=== PATIENT | female | born 1930 | race Caucasian/White ===

== ENCOUNTER 2018-02-26 18:09 | Inpatient (IN) ==
[2018-02-26] MEDS ORDERED: COMPOUNDED MED TP PRN (20:21)
[2018-02-26] MEDS: *HR* HYDROcodone/Acet 5/325 mg TABLET PO PRN (22:29)
[2018-02-27] MEDS: *HR* Metformin 500 MG TABLET PO SCH (08:53)
[2018-02-27] MEDS: Magnesium Oxide 400 MG TABLET PO SCH (08:53)
[2018-02-27] MEDS: Cholecalciferol (D-3) 1,000 UNIT TABLET PO SCH (08:53)
[2018-02-27] MEDS: Cyanocobalamin (B-12) 1,000 MCG TABLET PO SCH (08:53)
[2018-02-27] MEDS: Aspirin Enteric Coated 81 MG Tablet PO SCH (08:54)
[2018-02-27] MEDS: *HR* HYDROcodone/Acet 5/325 mg TABLET PO PRN ×2 (09:06→21:24)
--- NOTE | 2018-02-27 10:53 | Internal Med History&Physical ---
Date of Encounter: 02/27/18 Time of Encounter: 10:10 Assessment and Plan (1) Left patella fracture Current visit: No Status: Acute PT and OT eval ordered. Continue nonoperative approach at this time. Order scheduled Tylenol and continue prn [place]. Qualifiers: Encounter type: initial encounter Fracture type: closed Fracture morphology: longitudinal Fracture alignment: nondisplaced Qualified Code(s): S82.025A - Nondisplaced longitudinal fracture of left patella, initial encounter for closed fracture (2) Peripheral neuropathy Current visit: Yes Status: Acute Will check hemoglobin A1c, TSH and B12 level. Qualifiers: Peripheral neuropathy type: polyneuropathy, unspecified Qualified Code(s): G62.9 - Polyneuropathy, unspecified (3) Anemia Current visit: Yes Status: Acute Hemoglobin normal at 11.5 on 02/24/2018. Check anemia testing in a.m. Qualifiers: Anemia type: unspecified type Qualified Code(s): D64.9 - Anemia, unspecified (4) Atrial fibrillation Current visit: No Status: Chronic Continue aspirin instead of OAC. Sotalol ineffective for maintaining NSR. Qualifiers: Atrial fibrillation type: paroxysmal Qualified Code(s): I48.0 - Paroxysmal atrial fibrillation (5) Diabetes Current visit: No Status: Chronic Check hemoglobin A1c in a.m. 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 Qualifiers: Coronary Disease-Associated Artery/Lesion type: [place] artery [place] vs. transplanted heart: [place] heart Associated angina: without angina Qualified Code(s): I25.10 - Atherosclerotic heart disease of [place] coronary artery without angina pectoris (7) Seizures Current visit: No Status: Chronic She reports no seizures for approximately 18 years. Recommend she discuss with her PCP discontinuation of Dilantin. (8) Hypophosphatemia Current visit: Yes Status: Acute Phosphorus level 2.1 yesterday. Will give Neutra-Phos and monitor labs. Internal Medicine - H&P: HPI Chief complaint: Left patella fracture Admitted From: Hospital to Hospital Transfer Plans for Post Hospital Care: Home History of present illness: Ms. Martinez is a 87 year old female who was hospitalized at [facility] February 24- after presenting with a fall and left patella fracture. Orthopedic surgeon was consulted and felt nonoperative approach was appropriate at this time. She was admitted to [facility] swing bed for ongoing care needs. [facility] skeletal history is significant otherwise for DJD and gout. Past Med Surg Social Fam HX - Past Medical History Medical history: arthritis, atrial fibrillation, CVA, diabetes, GERD, hypertension, myocardial infarction, seizures Additional medical history: PNEUMONIA. Last seizure approximat2002 Psychiatric history: anxiety, depression - Past Surgical History Surgical History: , coronary bypass (CABG), AICD, pacemaker Additional surgical history: hip surgery - Social History Smoking Status: Never smoker Smokeless Tobacco Status: No Alcohol use: none Drug use: none - Family History Mother Living Status: Father Living Status: Internal Medicine - H&P: Meds Alendronate Sodium 70 mg PO TU 02/24/18 [History] Aspirin [Lo-Dose Aspirin EC] 162 mg PO DAILY 02/24/18 [History] Calcium Carbonate [Calcium] 500 mg PO DAILY 02/24/18 [History] Cholecalciferol (D-3) [Vitamin D] 1,000 unit PO DAILY 02/24/18 [History] Cyanocobalamin (B-12) [Vitamin B12] 1,000 mcg IM FR 02/24/18 [History] Ferrous Sulfate [Iron] 325 mg PO DAILY 02/24/18 [History] Magnesium Oxide [Magnesium] 400 mg PO DAILY 02/24/18 [History] Mecobalamin [B-12] 1,000 mcg SL DAILY 02/24/18 [History] Metformin HCl 250 mg PO DAILY 02/24/18 [History] Omeprazole [PriLOSEC] 40 mg PO DAILY 02/24/18 [History] PARoxetine HCl [Paroxetine HCl] 40 mg PO DAILY 02/24/18 [History] Phenytoin ER [Dilantin ER] 100 mg PO TID 02/24/18 [History] Polyethylene Glycol 3350 [MiraLax bowel prep] 17 gm PO DAILY PRN 02/24/18 [History] Simvastatin [Zocor] 10 mg PO DAILY 02/24/18 [History] Sotalol HCl [Betapace] 120 mg PO QPM 02/24/18 [History] HYDROcodone/Acet 5/325 mg [[place]xton 5-325 mg] 1 tab PO Q6HR PRN 7 Days #15 tablet 02/26/18 [Rx] Patient Taking Own Medication 1 each TP QID PRN each 02/26/18 [Rx] Allergy/AdvReac Type Severity Reaction Status Date / Time Penicillins Allergy Hives Verified 01/13/16 17:40 gabapentin AdvReac Confusion Verified 12/09/17 14:25 sulfamethoxazole AdvReac See Verified 02/24/18 21:39 [From Bactrim] Comments terbinafine [From Lamisil] AdvReac Nausea Verified 12/09/17 14:25 trimethoprim [From Bactrim] AdvReac See Verified 02/24/18 21:39 Comments All Systems PM: A 10-system review of systems was performed and is negative for pertinent findings except as documented above in the HPI. Review of systems: Gen.: She states her weight has been stable for several months Cardiovascular: She denies hypertension or heart failure. She claims she had an AR approximately 1998 followed by three-vessel CABG. She follows with a cardiol ogist at [facility]. She has had a pacemaker placed. She has chronic atrial fibrillation and is on aspirin instead of oral anticoagulant. She denies DVT or pulmonary embolus. Respiratory: She is a lifelong nonsmoker and denies chronic lung disease GI: She has GERD. She denies disorders of her liver gallbladder or exocrine pancreas : She had a kidney stone remotely. 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 She denies large distribution strokes. She states she has peripheral neuropathy. Endocrine: She was diagnosed with DM 2 approximately 2011. She denies known thyroid disease or hyperlipidemia Hematology/oncology: She denies blood disorders or internal malignancies. She has anemia on current blood work Psychiatric: She has history of anxiety and depression and is on Paxil. She denies other mental health diagnosis. [place] skeletal: As per history of present illness - Constitutional Vitals: Temp Pulse Resp BP Pulse Ox 98.8 F 90 18 149/63 92 02/27/18 07:00 02/27/18 07:00 02/27/18 07:00 02/27/18 07:00 02/27/18 07:00 Exam: Gen.: She is a well-developed lean female sitting in a chair at bedside who appears in no acute distress HEENT: Head is atraumatic and normocephalic. Eyes: EOMI. There is no scleral icterus. Mouth: Mucosa is moist. Neck: Supple and nontender. There is no thyromegaly or adenopathy noted. Heart: Irregularly irregular without murmurs or gallops Lungs: No wheezes or crackles are heard. Abdomen: Soft and nontender. Exam is limited because she is in the seated position. Extremities: The left leg has a knee immobilizer in place which I did not remove. There is trace edema of the left lower leg. Dorsalis pedis and posterior tibial pulses are trace to 1+ palpable bilaterally. She has significant DJD changes of her hands. Neurologic: Mental status: She is talkative and a good historian. Cranial nerves: Smile is symmetric. Forehead wrinkles bilaterally. Tongue protrudes midline. EOMI. Motor: There is no pronator drift. Cerebellar: Finger to nose is intact bilaterally. Skin: Warm and dry
[2018-02-28 06:23] LABS: Basophils # 0.1 K/mcL (0.0-0.2); Basophils % 0.7 %; Eosinophils # 0.2 K/mcL (0.0-0.6); Hematocrit 37.6 % (35.3-44.9); Hemoglobin 12.4 g/dL (11.5-15.4); Immature Granulocytes % 0.3 % (0-4); Lymphocytes # 2.2 K/mcL (0.6-4.6); Lymphocytes % 29.1 %; Mean Corpuscular Hemoglobin 32.2 pg (28.0-33.3); Mean Corpuscular Volume 97.7 fL (83.0-100.0); Mean Platelet Volume 9.6 fL (9.4-12.4); Monocytes # 0.9 K/mcL (0.0-1.3); Monocytes % 12.3 %; Neutrophils # 4.1 K/mcL (1.6-8.9); Platelet Count 277 K/mcL (140-400); Red Blood Count 3.85 M/mcL (3.82-4.97); Red Cell Distribution Width 12.6 % (11.5-14.5); Segmented Neutrophils % 54.6 %
[2018-02-28 06:55] LABS: Thyroid Stimulating Hormone 3.484 mcIU/mL (0.340-5.600)
[2018-02-28 06:57] LABS: Phenytoin (Dilantin) 5.4 mcg/mL (10.0-20.0)
[2018-02-28 09:07] LABS: Folate 13.8 ng/mL (3.0-16.0)
[2018-02-28 09:42] LABS: Estimated Average Glucose 123 mg/dl; Hemoglobin A1C 5.9 %
[2018-02-28] MEDS: *HR* Metformin 500 MG TABLET PO SCH (09:45)
[2018-02-28] MEDS: Cholecalciferol (D-3) 1,000 UNIT TABLET PO SCH (09:47)
[2018-02-28] MEDS: Cyanocobalamin (B-12) 1,000 MCG TABLET PO SCH (09:47)
[2018-02-28] MEDS: Aspirin Enteric Coated 81 MG Tablet PO SCH (09:47)
[2018-02-28] MEDS: Magnesium Oxide 400 MG TABLET PO SCH (09:47)
[2018-02-28] MEDS: *HR* HYDROcodone/Acet 5/325 mg TABLET PO PRN (09:50)
--- NOTE | 2018-02-28 12:22 | Internal Med Progress Note ---
Date of Encounter: 02/28/18 Time of Encounter: 12:05 - Assessment and plan (1) Left patella fracture Current Visit: No Status: Acute Assessment and plan: February 28. Continue therapy and analgesics as ordered. Qualifiers: Encounter type: initial encounter Fracture type: closed Fracture morphology: longitudinal Fracture alignment: nondisplaced Qualified Code(s): S82.025A - Nondisplaced longitudinal fracture of left patella, initial encounter for closed fracture (2) Peripheral neuropathy Current Visit: Yes Status: Acute Assessment and plan: February 28. B12 and TSH levels normal. Dilantin level low at 5.4. Will initiate taper of dose and see if neuropathy improves. Qualifiers: Peripheral neuropathy type: polyneuropathy, unspecified Qualified Code(s): G62.9 - Polyneuropathy, unspecified (3) Anemia Current Visit: Yes Status: Acute Assessment and plan: February 28. Hemoglobin normal at 12.4 today. Anemia testing showed iron 68, transferrin saturation 34, transferrin 144, ferritin 268, B12 996, and folate 13.8. Continue to monitor CBC. Qualifiers: Anemia type: unspecified type Qualified Code(s): D64.9 - Anemia, unspecified (4) Atrial fibrillation Current Visit: No Status: Chronic Assessment and plan: February 28. Continue aspirin. Sotalol ineffective for maintaining NSR. Qualifiers: Atrial fibrillation type: paroxysmal Qualified Code(s): I48.0 - Paroxysmal atrial fibrillation (5) Diabetes Current Visit: No Status: Chronic Assessment and plan: February 28. Hemoglobin A1c 5.9%. Will discontinue Glucophage and Accu-Cheks. 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 Continue aspirin. Qualifiers: Coronary Disease-Associated Artery/Lesion type: [place] artery [place] vs. transplanted heart: [place] heart Associated angina: without angina Qualified Code(s): I25.10 - Atherosclerotic heart disease of [place] coronary artery without angina pectoris (7) Seizures Current Visit: No Status: Chronic Assessment and plan: February 28. Initiate taper of Dilantin as per above. (8) Hypophosphatemia Current Visit: Yes Status: Acute Assessment and plan: February 28. Continue Neutra-Phos. Recheck phosphorus and other labs in a few days. - Subjective Interval history: February 28. She has no new complaints and feels well - Constitutional Vitals: Temp Pulse Resp BP Pulse Ox 97.8 F 92 16 113/61 95 02/28/18 11:01 02/28/18 11:01 02/28/18 11:01 02/28/18 11:01 02/28/18 11:01 Exam: She is resting comfortably in bed eating lunch and appears in no acute distress. Her affect is bright and cheerful. I reviewed her medications and lab results. Internal Medicine: Result - Labs CBC & Chem 7: 02/28/18 06:06 Labs: Short CBC 02/28/18 Range/Units 06:06 WBC 7.6 (4.3-11.1) K/mcL Hgb 12.4 D (11.5-15.4) g/dL Hct 37.6 (35.3-44.9) % Plt Count 277 (140-400) K/mcL Neutrophils # 4.1 (1.6-8.9) K/mcL Consult Discharge Plan - Plan Referrals: NONE,PCP [Primary Care Provider] - 1 week
[2018-02-28] MEDS: traMADol 50 MG TABLET PO PRN (16:12)
[2018-02-28] MEDS: Cyanocobalamin (B-12) 1,000 MCG/ML VIAL IM SCH (20:11)
[2018-03-01] MEDS: traMADol 50 MG TABLET PO PRN ×4 (00:42→22:10)
[2018-03-01] MEDS: Magnesium Oxide 400 MG TABLET PO SCH (08:36)
[2018-03-01] MEDS: Aspirin Enteric Coated 81 MG Tablet PO SCH (08:36)
[2018-03-01] MEDS: Cholecalciferol (D-3) 1,000 UNIT TABLET PO SCH (08:37)
[2018-03-01] MEDS: Cyanocobalamin (B-12) 1,000 MCG TABLET PO SCH (08:37)
[2018-03-02] MEDS: traMADol 50 MG TABLET PO PRN ×2 (05:48→12:59)
[2018-03-02] MEDS: Aspirin Enteric Coated 81 MG Tablet PO SCH (08:24)
[2018-03-02] MEDS: Cyanocobalamin (B-12) 1,000 MCG TABLET PO SCH (08:25)
[2018-03-02] MEDS: Magnesium Oxide 400 MG TABLET PO SCH (08:25)
[2018-03-02] MEDS: Cholecalciferol (D-3) 1,000 UNIT TABLET PO SCH (08:25)
--- NOTE | 2018-03-02 13:20 | Internal Med Progress Note ---
Date of Encounter: 03/02/18 Time of Encounter: 13:10 - Assessment and plan (1) Left patella fracture Current Visit: No Status: Acute Assessment and plan: February 28. Continue therapy and analgesics as ordered. Qualifiers: Encounter type: initial encounter Fracture type: closed Fracture morphology: longitudinal Fracture alignment: nondisplaced Qualified Code(s): S82.025A - Nondisplaced longitudinal fracture of left patella, initial encounter for closed fracture (2) Peripheral neuropathy Current Visit: Yes Status: Acute Assessment and plan: February 28. B12 and TSH levels normal. Dilantin level low at 5.4. Will initiate taper of dose and see if neuropathy improves. March 02. Continue Dilantin taper. Qualifiers: Peripheral neuropathy type: polyneuropathy, unspecified Qualified Code(s): G62.9 - Polyneuropathy, unspecified (3) Anemia Current Visit: Yes Status: Acute Assessment and plan: February 28. Hemoglobin normal at 12.4 today. Anemia testing showed iron 68, transferrin saturation 34, transferrin 144, ferritin 268, B12 996, and folate 13.8. Continue to monitor CBC. Qualifiers: Anemia type: unspecified type Qualified Code(s): D64.9 - Anemia, unspecified (4) Atrial fibrillation Current Visit: No Status: Chronic Assessment and plan: February 28. Continue aspirin. Sotalol ineffective for maintaining NSR. Qualifiers: Atrial fibrillation type: paroxysmal Qualified Code(s): I48.0 - Paroxysmal atrial fibrillation (5) Diabetes Current Visit: No Status: Chronic Assessment and plan: February 28. Hemoglobin A1c 5.9%. Will discontinue Glucophage and Accu-Cheks. March 02. She wishes to be on regular diet insisted of diabetic diet. 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 Continue aspirin. Qualifiers: Coronary Disease-Associated Artery/Lesion type: [place] artery [place] vs. transplanted heart: [place] heart Associated angina: without angina Qualified Code(s): I25.10 - Atherosclerotic heart disease of [place] coronary artery without angina pectoris (7) Seizures Current Visit: No Status: Chronic Assessment and plan: February 28. Initiate taper of Dilantin as per above. (8) Hypophosphatemia Current Visit: Yes Status: Acute Assessment and plan: February 28. Continue Neutra-Phos. Recheck phosphorus and other labs in a few days. - Subjective Interval history: February 28. She has no new complaints and feels well March 02. She has no new complaints. She states her left leg pain is gradually decreasing. - Constitutional Vitals: Temp Pulse Resp BP Pulse Ox 98.2 F 84 17 135/83 92 03/02/18 07:18 03/02/18 07:18 03/02/18 07:18 03/02/18 07:18 03/02/18 07:18 Exam: She is resting comfortably in bed and appears in no acute distress. Her affect is bright and cheerful. I reviewed her medications and lab results. Internal Medicine: Result - Labs CBC & Chem 7: 02/28/18 06:06 Consult Discharge Plan - Plan Referrals: NONE,PCP [Primary Care Provider] - 1 week
[2018-03-03] MEDS: Cyanocobalamin (B-12) 1,000 MCG TABLET PO SCH (08:54)
[2018-03-03] MEDS: Cholecalciferol (D-3) 1,000 UNIT TABLET PO SCH (08:55)
[2018-03-03] MEDS: Magnesium Oxide 400 MG TABLET PO SCH (08:55)
[2018-03-03] MEDS: Aspirin Enteric Coated 81 MG Tablet PO SCH (08:55)
[2018-03-03 10:31] LABS: Basophils # 0.1 K/mcL (0.0-0.2); Basophils % 0.7 %; Eosinophils # 0.2 K/mcL (0.0-0.6); Eosinophils % 2.5 %; Hematocrit 39.3 % (35.3-44.9); Hemoglobin 12.8 g/dL (11.5-15.4); Immature Granulocytes % 0.5 % (0-4); Lymphocytes # 1.8 K/mcL (0.6-4.6); Lymphocytes % 18.2 %; Mean Corpuscular HGB Conc 32.6 g/dL (31.6-35.5); Mean Corpuscular Hemoglobin 32.2 pg (28.0-33.3); Mean Corpuscular Volume 98.7 fL (83.0-100.0); Mean Platelet Volume 9.2 fL (9.4-12.4); Monocytes # 1.2 K/mcL (0.0-1.3); Monocytes % 11.8 %; Neutrophils # 6.5 K/mcL (1.6-8.9); Platelet Count 346 K/mcL (140-400); Red Blood Count 3.98 M/mcL (3.82-4.97); Red Cell Distribution Width 12.3 % (11.5-14.5); Segmented Neutrophils % 66.3 %
[2018-03-03] MEDS: *HR* HYDROcodone/Acet 5/325 mg TABLET PO PRN (11:27)
[2018-03-03] MEDS: traMADol 50 MG TABLET PO PRN (22:40)
[2018-03-04] MEDS: traMADol 50 MG TABLET PO PRN ×3 (05:46→20:28)
[2018-03-04] MEDS: *HR* HYDROcodone/Acet 5/325 mg TABLET PO PRN ×2 (06:52→22:42)
[2018-03-04] MEDS: Aspirin Enteric Coated 81 MG Tablet PO SCH (09:03)
[2018-03-04] MEDS: Cyanocobalamin (B-12) 1,000 MCG TABLET PO SCH (09:03)
[2018-03-04] MEDS: Magnesium Oxide 400 MG TABLET PO SCH (09:03)
[2018-03-04] MEDS: Cholecalciferol (D-3) 1,000 UNIT TABLET PO SCH (09:03)
--- NOTE | 2018-03-04 12:37 | Internal Med Progress Note ---
Date of Encounter: 03/04/18 Time of Encounter: 12:25 - Assessment and plan (1) Left patella fracture Current Visit: No Status: Acute Assessment and plan: February 28. Continue therapy and analgesics as ordered. Qualifiers: Encounter type: initial encounter Fracture type: closed Fracture morphology: longitudinal Fracture alignment: nondisplaced Qualified Code(s): S82.025A - Nondisplaced longitudinal fracture of left patella, initial encounter for closed fracture (2) Peripheral neuropathy Current Visit: Yes Status: Acute Assessment and plan: February 28. B12 and TSH levels normal. Dilantin level low at 5.4. Will initiate taper of dose and see if neuropathy improves. March 02. Continue Dilantin taper. Qualifiers: Peripheral neuropathy type: polyneuropathy, unspecified Qualified Code(s): G62.9 - Polyneuropathy, unspecified (3) Anemia Current Visit: Yes Status: Acute Assessment and plan: February 28. Hemoglobin normal at 12.4 today. Anemia testing showed iron 68, transferrin saturation 34, transferrin 144, ferritin 268, B12 996, and folate 13.8. Continue to monitor CBC. Qualifiers: Anemia type: unspecified type Qualified Code(s): D64.9 - Anemia, unspecified (4) Atrial fibrillation Current Visit: No Status: Chronic Assessment and plan: February 28. Continue aspirin. Sotalol ineffective for maintaining NSR. Qualifiers: Atrial fibrillation type: paroxysmal Qualified Code(s): I48.0 - Paroxysmal atrial fibrillation (5) Diabetes Current Visit: No Status: Chronic Assessment and plan: February 28. Hemoglobin A1c 5.9%. Will discontinue Glucophage and Accu-Cheks. March 02. She wishes to be on regular diet insisted of diabetic diet. Qualifiers: Diabetes mellitus type: type 2 Diabetes mellitus detention insulin use: unspecified terminologist insulin use status Diabetes mellitus complication status: with unspecified complications Qualified Code(s): E11.8 - Type 2 diabetes mellitus with unspecified complications (6) CAD (coronary artery disease) Current Visit: No Status: Chronic Assessment and plan: February 28. Continue aspirin. Qualifiers: Coronary Disease-Associated Artery/Lesion type: [place] artery [place] vs. transplanted heart: [place] heart Associated angina: without angina Qualified Code(s): I25.10 - Atherosclerotic heart disease of [place] coronary artery without angina pectoris (7) Seizures Current Visit: No Status: Chronic Assessment and plan: February 28. Initiate taper of Dilantin as per above. (8) Hypophosphatemia Current Visit: Yes Status: Acute Assessment and plan: February 28. Continue Neutra-Phos. Recheck phosphorus and other labs in a few days. March 04. Phosphorus level normal at 3.8 on March 03. Discontinue Neutra-Phos. - Subjective Interval history: February 28. She has no new complaints and feels well March 02. She has no new complaints. She states her left leg pain is gradually decreasing. March 04. She has no new complaints. - Constitutional Vitals: Temp Pulse Resp BP Pulse Ox 97.8 F 96 15 107/63 95 03/04/18 07:04 03/04/18 07:04 03/04/18 07:04 03/04/18 07:04 03/04/18 07:04 Exam: She is resting comfortably in bed and appears in no acute distress. Her affect is bright and cheerful. I reviewed her medications and lab results. Internal Medicine: Result - Labs CBC & Chem 7: 03/03/18 10:25 Consult Discharge Plan - Plan Referrals: NONE,PCP [Primary Care Provider] - 1 week
[2018-03-04] MEDS ORDERED: Alendronate Sodium [Alendronate Sodium] 70 MG PO SCH (19:54)
[2018-03-05] MEDS: Cyanocobalamin (B-12) 1,000 MCG TABLET PO SCH (08:05)
[2018-03-05] MEDS: Magnesium Oxide 400 MG TABLET PO SCH (08:05)
[2018-03-05] MEDS: Cholecalciferol (D-3) 1,000 UNIT TABLET PO SCH (08:05)
[2018-03-05] MEDS: Aspirin Enteric Coated 81 MG Tablet PO SCH (08:06)
[2018-03-05] MEDS: *HR* HYDROcodone/Acet 5/325 mg TABLET PO PRN (21:19)
[2018-03-06] MEDS: *HR* HYDROcodone/Acet 5/325 mg TABLET PO PRN (05:36)
[2018-03-06] MEDS: Cyanocobalamin (B-12) 1,000 MCG TABLET PO SCH (08:53)
[2018-03-06] MEDS: Aspirin Enteric Coated 81 MG Tablet PO SCH (08:53)
[2018-03-06] MEDS: Cholecalciferol (D-3) 1,000 UNIT TABLET PO SCH (08:53)
[2018-03-06] MEDS: Magnesium Oxide 400 MG TABLET PO SCH (08:53)
--- NOTE | 2018-03-06 12:41 | Internal Med Progress Note ---
Date of Encounter: 03/06/18 Time of Encounter: 12:30 - Assessment and plan (1) Left patella fracture Current Visit: No Status: Acute Assessment and plan: February 28. Continue therapy and analgesics as ordered. Qualifiers: Encounter type: initial encounter Fracture type: closed Fracture morphology: longitudinal Fracture alignment: nondisplaced Qualified Code(s): S82.025A - Nondisplaced longitudinal fracture of left patella, initial encounter for closed fracture (2) Peripheral neuropathy Current Visit: Yes Status: Acute Assessment and plan: February 28. B12 and TSH levels normal. Dilantin level low at 5.4. Will initiate taper of dose and see if neuropathy improves. March 02. Continue Dilantin taper. March 06. Decrease Dilantin to 100 mg daily. Qualifiers: Peripheral neuropathy type: polyneuropathy, unspecified Qualified Code(s): G62.9 - Polyneuropathy, unspecified (3) Anemia Current Visit: Yes Status: Acute Assessment and plan: February 28. Hemoglobin normal at 12.4 today. Anemia testing showed iron 68, transferrin saturation 34, transferrin 144, ferritin 268, B12 996, and folate 13.8. Continue to monitor CBC. March 06. Hemoglobin stable at 12.8 on March 03. Qualifiers: Anemia type: unspecified type Qualified Code(s): D64.9 - Anemia, unspecifie d (4) Atrial fibrillation Current Visit: No Status: Chronic Assessment and plan: February 28. Continue aspirin. Sotalol ineffective for maintaining NSR. Qualifiers: Atrial fibrillation type: paroxysmal Qualified Code(s): I48.0 - Paroxysmal atrial fibrillation (5) Diabetes Current Visit: No Status: Chronic Assessment and plan: February 28. Hemoglobin A1c 5.9%. Will discontinue Glucophage and Accu-Cheks. March 02. She wishes to be on regular diet insisted of diabetic diet. 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 Continue aspirin. Qualifiers: Coronary Disease-Associated Artery/Lesion type: [place] artery [place] vs. transplanted heart: [place] heart Associated angina: without angina Qualified Code(s): I25.10 - Atherosclerotic heart disease of [place] coronary artery without angina pectoris (7) Seizures Current Visit: No Status: Chronic Assessment and plan: February 28. Initiate taper of Dilantin as per above. March 06. Continue Dilantin taper. (8) Hypophosphatemia Current Visit: Yes Status: Acute Assessment and plan: February 28. Continue Neutra-Phos. Recheck phosphorus and other labs in a few days. March 04. Phosphorus level normal at 3.8 on March 03. Discontinue Neutra-Phos. - Subjective Interval history: February 28. She has no new complaints and feels well March 02. She has no new complaints. She states her left leg pain is gradually decreasing. March 04. She has no new complaints. March 06. She has no new complaints. - Constitutional Vitals: Temp Pulse Resp BP Pulse Ox 98.4 F 86 18 123/78 95 03/06/18 10:49 03/06/18 10:49 03/06/18 10:49 03/06/18 10:49 03/06/18 10:49 Exam: She is resting comfortably in bed and appears in no acute distress. Her affect is bright and cheerful. I reviewed her medications and lab results. Internal Medicine: Result - Labs CBC & Chem 7: 03/03/18 10:25 Consult Discharge Plan - Plan Referrals: NONE,PCP [Non-Partnered Physician] - 1 week
[2018-03-07] MEDS: Aspirin Enteric Coated 81 MG Tablet PO SCH (07:52)
[2018-03-07] MEDS: Magnesium Oxide 400 MG TABLET PO SCH (07:52)
[2018-03-07] MEDS: Cholecalciferol (D-3) 1,000 UNIT TABLET PO SCH (07:52)
[2018-03-07] MEDS: Cyanocobalamin (B-12) 1,000 MCG TABLET PO SCH (07:53)
[2018-03-07] MEDS: *HR* HYDROcodone/Acet 5/325 mg TABLET PO PRN (13:21)
[2018-03-07] MEDS: Cyanocobalamin (B-12) 1,000 MCG/ML VIAL IM SCH (20:24)
[2018-03-07] MEDS: traMADol 50 MG TABLET PO PRN (23:35)
[2018-03-08] MEDS: *HR* HYDROcodone/Acet 5/325 mg TABLET PO PRN (05:42)
[2018-03-08] MEDS: Aspirin Enteric Coated 81 MG Tablet PO SCH (08:05)
[2018-03-08] MEDS: Magnesium Oxide 400 MG TABLET PO SCH (08:06)
[2018-03-08] MEDS: Cyanocobalamin (B-12) 1,000 MCG TABLET PO SCH (08:06)
[2018-03-08] MEDS: Cholecalciferol (D-3) 1,000 UNIT TABLET PO SCH (08:06)
[2018-03-09 08:42] VITALS: BP 142/78
[2018-03-09] MEDS: Aspirin Enteric Coated 81 MG Tablet PO SCH (09:14)
[2018-03-09] MEDS: Magnesium Oxide 400 MG TABLET PO SCH (09:16)
[2018-03-09] MEDS: Cyanocobalamin (B-12) 1,000 MCG TABLET PO SCH (09:17)
[2018-03-09] MEDS: Cholecalciferol (D-3) 1,000 UNIT TABLET PO SCH (09:17)
--- NOTE | 2018-03-09 10:46 | Discharge Summary ---
Date of Encounter: 03/09/18 Time of Encounter: 10:35 - Discharge Diagnosis (1) Left patella fracture Priority: Primary Status: Acute Qualifiers: Encounter type: initial encounter Fracture type: closed Fracture morphology: longitudinal Fracture alignment: nondisplaced Qualified Code(s): S82.025A - Nondisplaced longitudinal fracture of left patella, initial encounter for closed fracture (2) Peripheral neuropathy Priority: Secondary Status: Acute Qualifiers: Peripheral neuropathy type: polyneuropathy, unspecified Qualified Code(s): G62.9 - Polyneuropathy, unspecified (3) Anemia Priority: Secondary Status: Acute Qualifiers: Anemia type: unspecified type Qualified Code(s): D64.9 - Anemia, unspecified (4) Atrial fibrillation Priority: Secondary Status: Chronic Qualifiers: Atrial fibrillation type: paroxysmal Qualified Code(s): I48.0 - Paroxysmal atrial fibrillation (5) Diabetes Priority: Secondary Status: Chronic Qualifiers: Diabetes mellitus type: type 2 Diabetes mellitus buttermaker continuous churn insulin use: unspecified mcc insulin use status Diabetes mellitus complication status: with unspecified complications Qualified Code(s): E11.8 - Type 2 diabetes mellitus with unspecified complications (6) CAD (coronary artery disease) Priority: Secondary Status: Chronic Qualifiers: Coronary Disease-Associated Artery/Lesion type: [place] artery [place] vs. transplanted heart: [place] heart Associated angina: without angina Qualified Code(s): I25.10 - Atherosclerotic heart disease of [place] coronary artery without angina pectoris (7) Seizures Priority: Secondary Status: Chronic (8) Hypophosphatemia Priority: Secondary Status: Resolved Hospital course: Ms. DAHL is a 87 year old female who was hospitalized at [facility] February 24- after presenting with a fall and left patella fracture. Orthopedic surgeon was consulted and felt nonoperative approach was appropriate at this time. She was admitted to [facility] swing bed for ongoing care needs. Initial orders were written by the discharging physicians at [facility]. I saw her on February 27 and performed a swing bed history and physical. She had physical therapy and occupational therapy evaluations with ongoing intervention. She made satisfactory improvement. Pain was adequately controlled. There were no new problems and on March 09 arrangements were complete for her to be discharged home. She will follow with the orthopedist as directed. Dilantin was tapered to see if peripheral neuropathy would improve. She reported she had not had a seizure in 18 years. Her PCP can monitor. Anemia testing showed iron 68, transferrin saturation 34%, transferrin 144, ferritin 268, B12 996, and folate 13.8. 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 Hemoglobin A1c was satisfactory at 5.9%. Metformin was discontinued and blood sugars remained well controlled. She will follow with her PCP within 1 week. Home health services will be ordered. - Time Spent with Patient Total time spent providing and/or coordinating discharge services: - Discharge Medications Home Medications: Alendronate Sodium 70 mg PO TU 02/24/18 [History] Aspirin [Lo-Dose Aspirin EC] 162 mg PO DAILY 02/24/18 [History] Calcium Carbonate [Calcium] 500 mg PO DAILY 02/24/18 [History] Cholecalciferol (D-3) [Vitamin D] 1,000 unit PO DAILY 02/24/18 [History] Cyanocobalamin (B-12) [Vitamin B12] 1,000 mcg IM FR 02/24/18 [History] Ferrous Sulfate [Iron] 325 mg PO DAILY 02/24/18 [History] Magnesium Oxide [Magnesium] 400 mg PO DAILY 02/24/18 [History] Mecobalamin [B-12] 1,000 mcg SL DAILY 02/24/18 [History] Omeprazole [PriLOSEC] 40 mg PO DAILY 02/24/18 [History] PARoxetine HCl [Paroxetine HCl] 40 mg PO DAILY 02/24/18 [History] Polyethylene Glycol 3350 [MiraLax bowel prep] 17 gm PO DAILY PRN 02/24/18 [History] Simvastatin [Zocor] 10 mg PO DAILY 02/24/18 [History] Sotalol HCl [Betapace] 120 mg PO QPM 02/24/18 [History] Patient Taking Own Medication 1 each TP QID PRN each 02/26/18 [Rx] Allergies/Adverse Reactions: Allergy/AdvReac Type Severity Reaction Status Date / Time Penicillins Allergy Hives Verified 01/13/16 17:40 gabapentin AdvReac Confusion Verified 12/09/17 14:25 sulfamethoxazole AdvReac See Verified 02/24/18 21:39 [From Bactrim] Comments terbinafine [From Lamisil] AdvReac Nausea Verified 12/09/17 14:25 trimethoprim [From Bactrim] AdvReac See Verified 02/24/18 21:39 Comments Date of admission: 02/26/18 18:28 Primary care physician: Teja Schrader MD Consults: 02/26/18 19:28 Consult to Occupational Therapy [CONS] Routine Comment: To evaluate, develop, and implement POC Reason for Consult: To evaluate, develop, and implement POC Does patient have active BEDREST order?: No Is patient medically & hemodynamically stable?: Yes Patient assessed for mobility or mobilized this visit?: Yes Consult to Physical Therapy [CONS] Routine Comment: To evaluate, develop, and implement POC Reason for Consult: To evaluate, develop, and implement POC Does patient have active BEDREST order?: No Is patient medically & hemodynamically stable?: Yes Patient assessed for mobility or mobilized this visit?: Yes Consult to Pst Specialist [CONS] Routine Reason for SW Consult: discharge planning - Constitutional Vitals: Temp Pulse Resp BP Pulse Ox 98.1 F 82 18 142/78 94 03/09/18 08:00 03/09/18 08:00 03/09/18 08:00 03/09/18 08:00 03/09/18 08:00 - Patient Status Disposition: Home Health Service Functional capacity at discharge: uses cane/walker - Discharge Instructions Follow Up With: NONE,PCP [Non-Partnered Physician] - 1 week - Diet and Activity Activity: as per physical therapy Diet: regular diet
--- NOTE | 2018-03-09 10:58 | Physician Discharge Referral ---
Home Health/Hosp Referral Info Transfer to: Home Health Attending Provider: Tyron Provider in Charge Post Discharge: PCP (Teja Schrader M.D.) - Diagnosis (1) Left patella fracture Priority: Primary Status: Acute (2) Peripheral neuropathy Priority: Secondary Status: Acute (3) Anemia Priority: Secondary Status: Acute (4) Atrial fibrillation Priority: Secondary Status: Chronic (5) Diabetes Priority: Secondary Status: Chronic (6) CAD (coronary artery disease) Priority: Secondary Status: Chronic (7) Seizures Priority: Secondary Status: Chronic (8) Hypophosphatemia Priority: Secondary Status: Resolved - Respiratory Orders Smoking Cessation: Smoking cessation has been advised. For more information, call the [place] Tobacco Quit Line at 5-153-VGKU-NOW. - Diet/Nutrition Diet/Nutrition Orders: Regular - Activity Activity Orders: Walker - Services Needed Following services are medically necessary services: Nursing, Home Health Aide, Physical Therapy, Occupational Therapy - Transfer Medications Home Medications: Alendronate Sodium 70 mg PO TU 02/24/18 [History] Aspirin [Lo-Dose Aspirin EC] 162 mg PO DAILY 02/24/18 [History] Calcium Carbonate [Calcium] 500 mg PO DAILY 02/24/18 [History] Cholecalciferol (D-3) [Vitamin D] 1,000 unit PO DAILY 02/24/18 [History] Cyanocobalamin (B-12) [Vitamin B12] 1,000 mcg IM FR 02/24/18 [History] Ferrous Sulfate [Iron] 325 mg PO DAILY 02/24/18 [History] Magnesium Oxide [Magnesium] 400 mg PO DAILY 02/24/18 [History] Mecobalamin [B-12] 1,000 mcg SL DAILY 02/24/18 [History] Omeprazole [PriLOSEC] 40 mg PO DAILY 02/24/18 [History] PARoxetine HCl [Paroxetine HCl] 40 mg PO DAILY 02/24/18 [History] Polyethylene Glycol 3350 [MiraLax bowel prep] 17 gm PO DAILY PRN 02/24/18 [History] Simvastatin [Zocor] 10 mg PO DAILY 02/24/18 [History] Sotalol HCl [Betapace] 120 mg PO QPM 02/24/18 [History] Patient Taking Own Medication 1 each TP QID PRN each 02/26/18 [Rx] Allergies/Adverse Reactions: Allergy/AdvReac Type Severity Reaction Status Date / Time Penicillins Allergy Hives Verified 01/13/16 17:40 gabapentin AdvReac Confusion Verified 12/09/17 14:25 sulfamethoxazole AdvReac See Verified 02/24/18 21:39 [From Bactrim] Comments terbinafine [From Lamisil] AdvReac Nausea Verified 12/09/17 14:25 trimethoprim [From Bactrim] AdvReac See Verified 02/24/18 21:39 Comments Certification: Further, I certify that my clinical findings support that this patient is homebound (i.e. absences from home require considerable and taxing effort and are for medical reasons or restorationist services or infrequently or short duration when for other reasons) because: Homebound Reason: Leaving home requires considerable and taxing effort due to condition (Impaired walking ability secondary to patella fracture) Attestation: My signature below is to certify that this patient is under my care and that I, or nurse practitioner, or a physician's medical clerical assistant working with me, has a [id number] encounter with this patient.
[2018-03-09] MEDS: traMADol 50 MG TABLET PO PRN (18:37)
== END 2018-03-09 19:08 | disposition home health service (06) | DRG 561 ==
LOC: INPPIK 18:28
PROVIDERS: ADMIT Internal Medicine; ATTEND Internal Medicine

== ENCOUNTER 2018-12-18 16:02 | Inpatient (IN) ==
--- NOTE | 2018-12-18 16:10 | Emergency Department Note ---
Disposition Clinical Impression: Cavitary pneumonia Pneumonia Qualifiers: Pneumonia type: due to unspecified organism Laterality: right Lung location: upper lobe of lung Qualified Code(s): J18.1 - Lobar pneumonia, unspecified organism Disposition: Admitted As Inpatient Condition: Fair Time of Disposition: 16:55 SOB HPI - General Chief Complaint: ED General Medical Stated Complaint: shortness of breath, fatigue Time Seen by Provider: 12/18/18 16:04 Source: patient, family Mode of arrival: private vehicle Limitations: no limitations Nursing Notes Reviewed: Yes Vital Signs Reviewed: Yes - History of Present Illness Reports having some sinus congestion and drainage for about a month. With this she has had some shortness of breath but this is increased over the last 4 days. She states her cough is because of the sinus drainage is nonproductive. Her family doctor to urgent care in [facility] where they said her heart rate was running 50-100 and they were given oxygen saturations of 80-82% on room air. There advised her that she should go to the emergency department and she is presented here by private auto. She is not on oxygen. She is in the [place] urgent care about an hour and half ago. Family states they checked a urinalysis and this was unremarkable. She relates she gets a little bit of lower extremity edema in the mornings but he gets better during the days. She denies any chest pain or palpitation. She states her cough is better with some cough drops. She denies any diaphoresis or nausea. She states she feels "just weak". The only medication she is been on some Robitussin. She has not seen a family doctor and has not been on any type antibiotics or respiratory treatment. She arrives here in a sinus rhythm with oxygen saturations in the mid to high 90s. Pt Subjective Complaint: shortness of breath Onset (ago): month(s) (1) Context: recent illness Severity: mild, moderate Consistency/Duration: intermittent, gradually worsening Improves with: rest Worsens with: movement, coughing Known history of: diabetes, other (Atrial fibrillation) Associated symptoms: Reports: cough. Denies: chest pain, pain with inspiration, fever, wheezing, sputum production, orthopnea, lower extremity pain, polyuria, polydipsia, parasthesias, palpitations, hemoptysis, diaphoresis, nausea/vomiting, syncope, abdominal pain, rash, sense of impending doom Treatment prior to arrival: none Cough present: Yes Cough Description: Voluntary, Dry Cough Frequency: Intermittent Sputum production: No Sputum Amount: None - Related Data Home oxygen amount: none Home Medications Medication Instructions Recorded Confirmed Alendronate Sodium 70 mg PO TU 02/24/18 02/26/18 Aspirin [Lo-Dose Aspirin EC] 162 mg PO DAILY 02/24/18 02/26/18 Calcium Carbonate [Calcium] 500 mg PO DAILY 02/24/18 02/26/18 Cholecalciferol (D-3) [Vitamin D] 1,000 unit PO DAILY 02/24/18 02/26/18 Cyanocobalamin (B-12) [Vitamin B12] 1,000 mcg IM FR 02/24/18 02/26/18 Ferrous Sulfate [Iron] 325 mg PO DAILY 02/24/18 02/26/18 Magnesium Oxide [Magnesium] 400 mg PO DAILY 02/24/18 02/26/18 Mecobalamin [B-12] 1,000 mcg SL DAILY 02/24/18 02/26/18 Omeprazole [PriLOSEC] 40 mg PO DAILY 02/24/18 02/26/18 PARoxetine HCl [Paroxetine HCl] 40 mg PO DAILY 02/24/18 02/26/18 Polyethylene Glycol 3350 [MiraLax 17 gm PO DAILY PRN 02/24/18 02/26/18 bowel prep] Simvastatin [Zocor] 10 mg PO DAILY 02/24/18 02/26/18 Sotalol HCl [Betapace] 120 mg PO QPM 02/24/18 02/26/18 Previous Rx's Medication Instructions Recorded Patient Taking Own Medication 1 each TP QID PRN each 02/26/18 Allergies Allergy/AdvReac Type Severity Reaction Status Date / Time Penicillins Allergy Hives Verified 01/13/16 17:40 gabapentin AdvReac Confusion Verified 12/09/17 14:25 sulfamethoxazole AdvReac See Verified 02/24/18 21:39 [From Bactrim] Comments terbinafine [From Lamisil] AdvReac Nausea Verified 12/09/17 14:25 trimethoprim [From Bactrim] AdvReac See Verified 02/24/18 21:39 Comments All systems ED: reviewed and negative except as stated. Past Medical History - Past Medical History Attestation: Yes The following information was validated with the patient. Source: patient, old records reviewed, obtained from family, nursing notes reviewed Medical history: Reports: arthritis, atrial fibrillation, CVA, diabetes, GERD, hypertension, myocardial infarction, seizures Surgical history: Reports: , coronary bypass (CABG), AICD, pacemaker Psychiatric history: Reports: anxiety, depression - Social History Smoking Status: Never smoker Smokeless Tobacco Status: No Alcohol use: Reports: none Drug use: Reports: none Physical Exam - General Limitations: no limitations General appearance: alert, in no apparent distress - Head Head exam: atraumatic, normocephalic, normal inspection - Eye Eye exam: Present: normal appearance, PERRL, EOMI - ENT ENT exam: normal exam, normal oropharynx, mucous membranes moist - Neck Neck exam: Present: normal inspection, full ROM, trachea midline - Chest Chest inspection: Present: normal inspection, symmetric chest wall rise. Absent: tenderness - Respiratory Respiratory exam: Present: normal lung sounds bilaterally, other (Occasional dry cough). Absent: respiratory distress, wheezes, prolonged expiratory phase - Cardiovascular Cardiovascular exam: Present: regular rate, normal rhythm, normal heart sounds, other (PVCs on monitor). Absent: tachycardia - Abdominal Exam Abdominal exam: Present: soft, Non-Tender, normal bowel sounds. Absent: tenderness, distention, guarding, rebound, rigidity - Extremities Exam Extremities exam: Present: normal inspection, full ROM, normal capillary refill. Absent: tenderness, pedal edema, calf tenderness - Expanded Lower Extremity Exam Neurovascular/Tendon exam: Present: normal capillary refill. Absent: motor deficit, sensory deficit, tendon deficit Gait: observed and normal - Neurological Exam Neurological exam: Present: alert, oriented X3, normal gait - Psychiatric Psychiatric exam: Present: normal affect, normal mood. Absent: agitated, anxious - Skin Skin exam: Present: warm, dry, intact, normal color. Absent: diaphoresis, pallor Course Course Narrative: 1625: Patient has a prominent infiltrate in the right upper lobe. Care is discussed with the patient and family. She does live alone and has had some weakness, irregular heartbeat hypoxia just earlier today. They feel be prudent to have her observed and I believe this is reasonable. She is started on IV fluids with a small bolus and Rocephin and azithromycin is started intravenously. With return of lab tests care will be discussed with Dr. Ackerman. 1655: All results been discussed with the family and Dr. Ackerman. Verbal orders have been obtained for her observation. She is coordinated to inpatient care in stable condition. Vital Signs Temperature 99.0 F 12/18/18 16:03 Pulse Rate 99 12/18/18 16:03 Respiratory Rate 18 12/18/18 16:03 Blood Pressure 146/94 12/18/18 16:03 O2 Sat by Pulse Oximetry 96 12/18/18 16:03 Temperature 98.1 F 12/18/18 19:19 Pulse Rate 101 12/18/18 19:19 Respiratory Rate 36 12/18/18 21:50 Blood Pressure 126/74 12/18/18 19:19 O2 Sat by Pulse Oximetry 97 12/18/18 21:50 Oxygen Delivery Oxygen Delivery Room Air Shortness of Breath/Dyspnea - Differential Diagnosis Likely: acute exacerbation of chronic obstructive airways disease, congestive heart failure, asthma with exacerbation, arrhythmia - Lab Data Lab results reviewed: Yes I reviewed the patient's lab results. Result diagrams: 12/18/18 16:37 12/18/18 16:37 Lab Results 12/18/18 12/18/18 12/18/18 Range/Units 16:37 16:37 16:37 WBC 16.7 H (4.3-11.1) K/mcL RBC 3.64 L (3.82-4.97) M/mcL Hgb 11.9 (11.5-15.4) g/dL Hct 35.1 L (35.3-44.9) % MCV 96.4 (83.0-100.0) fL MCH 32.7 (28.0-33.3) pg MCHC 33.9 (31.6-35.5) g/dL RDW 12.6 (11.5-14.5) % Plt Count 331 (140-400) K/mcL MPV 8.9 L (9.4-12.4) fL Immature Gran % 0.8 (0-4) % Seg Neutrophils % 71.1 % Lymphocytes % 15.8 % Monocytes % 10.9 % Eosinophils % 1.0 % Basophils % 0.4 % Neutrophils # 11.9 H (1.6-8.9) K/mcL Lymphocytes # 2.6 (0.6-4.6) K/mcL Monocytes # 1.8 H (0.0-1.3) K/mcL Eosinophils # 0.2 (0.0-0.6) K/mcL Basophils # 0.1 (0.0-0.2) K/mcL Sodium 133 L (136-145) mEq/L Potassium 4.1 (3.5-5.1) mEq/L Chloride 96 L (98-107) mEq/L Carbon Dioxide 31 H (23-29) mEq/L BUN 24 H (8-23) mg/dL Creatinine 0.67 (0.60-1.20) mg/dL Est GFR ( Amer) > 60 (> 60) Est GFR (Non-Af Amer) > 60 (> 60) BUN/Creatinine Ratio 36 H (6-26) Glucose 143 H (70-105) mg/dL Calculated Osmolality 283 (280-300) Lactic Acid (0.5-2.2) mmol/L Calcium 9.0 (8.6-10.3) mg/dL Troponin I < 0.03 (< 0.04) ng/mL B-Natriuretic Peptide 156 H (Less than 100) pg/mL 12/18/18 Range/Units 16:37 WBC (4.3-11.1) K/mcL RBC (3.82-4.97) M/mcL Hgb (11.5-15.4) g/dL Hct (35.3-44.9) % MCV (83.0-100.0) fL MCH (28.0-33.3) pg MCHC (31.6-35.5) g/dL RDW (11.5-14.5) % Plt Count (140-400) K/mcL MPV (9.4-12.4) fL Immature Gran % (0-4) % Seg Neutrophils % % Lymphocytes % % Monocytes % % Eosinophils % % Basophils % % Neutrophils # (1.6-8.9) K/mcL Lymphocytes # (0.6-4.6) K/mcL Monocytes # (0.0-1.3) K/mcL Eosinophils # (0.0-0.6) K/mcL Basophils # (0.0-0.2) K/mcL Sodium (136-145) mEq/L Potassium (3.5-5.1) mEq/L Chloride (98-107) mEq/L Carbon Dioxide (23-29) mEq/L BUN (8-23) mg/dL Creatinine (0.60-1.20) mg/dL Est GFR ( Amer) (> 60) Est GFR (Non-Af Amer) (> 60) BUN/Creatinine Ratio (6-26) Glucose (70-105) mg/dL Calculated Osmolality (280-300) Lactic Acid 1.6 (0.5-2.2) mmol/L Calcium (8.6-10.3) mg/dL Troponin I (< 0.04) ng/mL B-Natriuretic Peptide (Less than 100) pg/mL - Radiology Data Radiology results reviewed: Yes I reviewed the patient's radiology results. Single view chest x-rays performed. This demonstrates a right upper lobe infiltrate. I do not see other effusion, pneumothorax, heart failure. Cardiac silhouette is borderline enlarged. Patient has deformity from previous right proximal humeral fracture. Patient has pacer with intact wires in the left upper chest. No other acute abnormality is seen. This is on my interpretation. Impressions Chest X-Ray 12/18/18 16:25 IMPRESSION: 1. Interval appearance since February 2018 of a masslike opacity in the right upper lung zone measuring up to 5.1 cm. Finding is concerning for malignancy. Recommend dedicated chest CT with IV contrast. 2. COPD. D/ / 12/18/2018 16:31:03 Sultana Floyd MD / tg Interpreting Provider: Sultana Floyd MD Impressions Chest X-Ray 12/18/18 16:25 IMPRESSION: 1. Interval appearance since February 2018 of a masslike opacity in the right upper lung zone measuring up to 5.1 cm. Finding is concerning for malignancy. Recommend dedicated chest CT with IV contrast. 2. COPD. D/ / 12/18/2018 16:31:03 Sultana Floyd MD / tg Interpreting Provider: Sultana Floyd MD Chest CT 12/18/18 17:38 IMPRESSION: 1. There is a right upper lobe infiltrate with areas of central liquefaction and cavitation, most likely related to an infectious etiology. Surrounding areas of consolidation are noted elsewhere in the right upper lobe, concerning for pneumonia. An underlying mass cannot entirely be excluded. Short interval follow-up in 2-3 months is recommended for further evaluation versus tissue sampling. 2. Enlarged mediastinal lymph nodes, presumably reactive. 3. Extensive atherosclerotic disease. 4. There is a right middle lobe nodule, slightly increased in size now measuring 7 x 5 mm when this previously measured 5 x 5 mm. Attention on follow-up imaging is recommended. D/ /18/2018 17:50:23 Dequan Merritt MD / [facility] Interpreting Provider: Dequan Merritt MD - EKG Data EKG attestation: Yes I reviewed and interpreted this EKG. EKG shows normal: Reports: sinus rhythm (98), axis, intervals, QRS complexes, ST-T waves Rate: Reports: normal (98) Rhythm: Reports: PVC's Interpretation: Reports: no acute changes, nonspecific ST-T wave changes
[2018-12-18] MEDS ORDERED: cefTRIAXone 2,000 MG in 0.9 % Sodium Chloride Mini Bag 100 ML IVPB ONE (16:23)
[2018-12-18] MEDS ORDERED: 0.9 % Sodium Chloride 500 ML IVC ONE (16:23)
[2018-12-18] MEDS ORDERED: Azithromycin 500 MG in 0.9 % Sodium Chloride 250 ML IVPB ONE (16:26)
[2018-12-18] MEDS ORDERED: 0.9 % Sodium Chloride 1,000 ML IVC SCH (16:30)
[2018-12-18 16:49] LABS: Basophils # 0.1 K/mcL (0.0-0.2); Basophils % 0.4 %; Eosinophils # 0.2 K/mcL (0.0-0.6); Hematocrit 35.1 % (35.3-44.9); Hemoglobin 11.9 g/dL (11.5-15.4); Immature Granulocytes % 0.8 % (0-4); Lymphocytes # 2.6 K/mcL (0.6-4.6); Lymphocytes % 15.8 %; Mean Corpuscular HGB Conc 33.9 g/dL (31.6-35.5); Mean Corpuscular Hemoglobin 32.7 pg (28.0-33.3); Mean Corpuscular Volume 96.4 fL (83.0-100.0); Mean Platelet Volume 8.9 fL (9.4-12.4); Monocytes # 1.8 K/mcL (0.0-1.3); Monocytes % 10.9 %; Neutrophils # 11.9 K/mcL (1.6-8.9); Platelet Count 331 K/mcL (140-400); Red Blood Count 3.64 M/mcL (3.82-4.97); Red Cell Distribution Width 12.6 % (11.5-14.5); Segmented Neutrophils % 71.1 %; White Blood Count 16.7 K/mcL (4.3-11.1)
[2018-12-18 17:03] LABS: BUN/Creatinine Ratio 36 (6-26); Blood Urea Nitrogen 24 mg/dL (8-23); Carbon Dioxide 31 mEq/L (23-29); Chloride 96 mEq/L (98-107); Glucose 143 mg/dL (70-105); Osmolality,Calculated 283 (280-300); Potassium 4.1 mEq/L (3.5-5.1); Sodium 133 mEq/L (136-145); eGFR For African Americans > 60 (> 60); eGFR For Non-African Americans > 60 (> 60)
[2018-12-18 17:07] LABS: Troponin I < 0.03 ng/mL (< 0.04)
[2018-12-18] MEDS ORDERED: Isovue-370 500 ML BOTTLE IVP ONE (17:09)
[2018-12-18] MEDS ORDERED: Mag Hydrox/Al Hydrox/Simeth 30 ML UDC PO PRN (18:57)
[2018-12-18] MEDS ORDERED: Albuterol 2.5 MG/3 ML NEBULIZER IH PRN (18:57)
[2018-12-18] MEDS ORDERED: Ondansetron ODT 4 MG TAB.RAPDIS SL PRN (18:57)
[2018-12-18] MEDS ORDERED: Naloxone 0.4 MG/ML INJ IVP PRN (18:57)
[2018-12-18] MEDS: Ipratropium/Albuterol Neb 3 ML IH SCH (21:50)
[2018-12-18] MEDS: 0.9 % Sodium Chloride 1,000 ML IVC SCH (21:52)
[2018-12-19] MEDS ORDERED: GuaiFENesin/Codeine Oral Soln 5 ML UDC PO SCH
[2018-12-19] MEDS: Ipratropium/Albuterol Neb 3 ML IH SCH ×4 (03:58→22:27)
[2018-12-19] MEDS: 0.9 % Sodium Chloride 1,000 ML IVC SCH ×2 (05:53→17:05)
--- NOTE | 2018-12-19 09:20 | Electrocardiograph Report ---
[place] [id number] Test Date: 2018-12-18 Pat Name: Saira Martinez Department: EDP-16 Room: [facility] Gender: F Director Of Sustainability Programs: : 1930 Requested By: Ander Sorenson Order Number: [id number] Reading MD: Virgilio Alvarez Measurements Intervals [place] Rate: 98 P: 15 IN: 134 QRS: 76 QRSD: 88 T: 75 QT: 358 QTc: 458 Interpretive Statements Sinus rhythm PVCs Possible septal infarct, age undetermined Electronically Signed On 12-19-2018 9:18:10 EDT by Virgilio Alvarez
--- NOTE | 2018-12-19 12:53 | Internal Med History&Physical ---
Date of Encounter: 12/19/18 Time of Encounter: 12:00 Assessment and Plan (1) Cavitary pneumonia Current visit: Yes Status: Acute Sputum for Gram stain and culture and fungal stain will be ordered. Blood cultures have been drawn. TB skin testing will be done. She will be started on clindamycin in addition to the Rocephin and Zithromax given in emergency room. Lactobacillus has been ordered. 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 Qualifiers: Atrial fibrillation type: paroxysmal Qualified Code(s): I48.0 - Paroxysmal atrial fibrillation (4) CAD (coronary artery disease) Current visit: No Status: Chronic Status post three-vessel CABG 1998. Continue aspirin and sotalol. Qualifiers: Coronary Disease-Associated Artery/Lesion type: [place] artery [place] vs. transplanted heart: [place] heart Associated angina: without angina Qualified Code(s): I25.10 - Atherosclerotic heart disease of [place] coronary artery without angina pectoris (5) Diabetes Current visit: No Status: Chronic Hemoglobin A1c was 5.9% on 11/29/2017. Diet-controlled. Qualifiers: Diabetes mellitus type: type 2 Diabetes mellitus group home insulin use: without group home use Diabetes mellitus complication status: without complication Qualified Code(s): E11.9 - Type 2 diabetes mellitus without complications (6) Peripheral neuropathy Current visit: No Status: Acute Etiology uncertain. She is on scheduled oral and IM B12 at home. Qualifiers: Peripheral neuropathy type: polyneuropathy, unspecified Qualified Code(s): G62.9 - Polyneuropathy, unspecified Internal Medicine - H&P: HPI Chief complaint: Dyspnea, cavitary pneumonia Admitted From: Emergency Dept Plans for Post Hospital Care: Home History of present illness: Ms. Martinez is a 88 year old female ho came to emergency room complaining of dyspnea increasing over the past 4 weeks. She has had a cough with family reporting reddish tinged mucus in the past few days. She denies fevers chills vomiting diarrhea or pain. She was evaluated in emergency room and was found to have a right upper lobe 3.5 x 2.7 cm cavitary lesion. She was [facility] floor for ongoing care needs. She states she feels at her baseline and has no specific complaints at present time except sinus drainage with postnasal drip. Respiratory history is significant for being a lifelong nonsmoker. She denies chronic lung disease and does not use home oxygen. Past Med Surg Social Fam HX - Past Medical History Medical history: arthritis, atrial fibrillation, diabetes, GERD, hypertension, myocardial infarction, seizures Additional medical history: PNEUMONIA. Last seizure approximatley 2002 Psychiatric history: anxiety, depression - Past Surgical History Surgical History: , coronary bypass (CABG), pacemaker Additional surgical history: hip surgery - Social History Smoking Status: Never smoker Smokeless Tobacco Status: No Alcohol use: none Drug use: none - Family History Mother Living Status: Father Living Status: Internal Medicine - H&P: Meds Alendronate Sodium 70 mg PO TU 02/24/18 [History] Aspirin [Lo-Dose Aspirin EC] 162 mg PO DAILY 02/24/18 [History] Calcium Carbonate [Calcium] 500 mg PO DAILY 02/24/18 [History] Cholecalciferol (D-3) [Vitamin D] 1,000 unit PO DAILY 02/24/18 [History] Cyanocobalamin (B-12) [Vitamin B12] 1,000 mcg IM FR 02/24/18 [History] Ferrous Sulfate [Iron] 325 mg PO DAILY 02/24/18 [History] Magnesium Oxide [Magnesium] 400 mg PO DAILY 02/24/18 [History] Mecobalamin [B-12] 1,000 mcg SL DAILY 02/24/18 [History] Omeprazole [PriLOSEC] 40 mg PO DAILY 02/24/18 [History] PARoxetine HCl [Paroxetine HCl] 40 mg PO DAILY 02/24/18 [History] Polyethylene Glycol 3350 [MiraLax bowel prep] 17 gm PO DAILY PRN 02/24/18 [History] Simvastatin [Zocor] 10 mg PO DAILY 02/24/18 [History] Sotalol HCl [Betapace] 120 mg PO QPM 02/24/18 [History] Patient Taking Own Medication 1 each TP QID PRN each 02/26/18 [Rx] Allergy/AdvReac Type Severity Reaction Status Date / Time Penicillins Allergy Hives Verified 01/13/16 17:40 gabapentin AdvReac Confusion Verified 12/09/17 14:25 sulfamethoxazole AdvReac See Verified 12/03/18 21:39 [From Bactrim] Comments terbinafine [From Lamisil] AdvReac Nausea Verified 12/09/17 14:25 trimethoprim [From Bactrim] AdvReac See Verified 02/24/18 21:39 Comments All Systems PM: A 10-system review of systems was performed and is negative for pertinent findings except as documented above in the HPI. Review of systems: Review of systems from her February 2018 [facility] hospitalization were reviewed and revised as below. Gen.: Her weight has increased from 50.831 kg on 03/04/2018 to present weight of 53.524 kilograms. Cardiovascular: She denies hypertension or heart failure. She claims she had an NH approximately 1998 followed by three-vessel CABG. She follows with a mobility manager at [facility]. She has had a pacemaker placed. She has chronic atrial fibrillation and is on aspirin instead of oral anticoagulant. She denies DVT or pulmonary embolus. Respiratory: As per history of present illness GI: She has GERD. She denies disorders of her liver gallbladder or exocrine pancreas : She had a kidney stone remotely. 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 She denies large distribution strokes. She states she has peripheral neuropathy. Endocrine: She was diagnosed with DM 2 approximately 2011. She denies known thyroid disease or hyperlipidemia Hematology/oncology: She denies blood disorders or internal malignancies. She has had anemia in the past which has resolved. Psychiatric: She has history of anxiety and depression and is on Paxil. She denies other mental health diagnosis. [place] skeletal: She has DJD and gout history. She complains of chronic low back pain. - Constitutional Vitals: Temp Pulse Resp BP Pulse Ox 98.5 F 79 16 124/68 94 12/19/18 10:25 12/19/18 10:25 12/19/18 10:25 12/19/18 10:25 12/19/18 10:25 Exam: Gen.: She is a well-developed well-nourished female sitting in a chair at bedside who appears in no acute distress HEENT: Head is atraumatic and normocephalic. Eyes: EOMI. There is no scleral icterus. Mouth: Mucosa is moist. Neck: Supple and nontender. There is no thyromegaly or adenopathy noted. Heart: Irregularly irregular without murmurs or gallops. Lungs: She has egophony in the left posterior upper lung green. No egophony is heard in the right lung. No wheezes or crackles are heard. Abdomen: Soft and nontender. Exam is limited because she is in the seated position. Extremities: There is no cyanosis edema or clubbing noted. Dorsalis pedis and posterior tibial pulses trace palpable bilaterally. Her feet are warm to touch. Neurologic: Mental status: She is talkative and a good historian. Cranial nerves: Smile is symmetric. Forehead wrinkles bilaterally. Tongue protrudes midline. EOMI. Motor: There is no pronator drift. Cerebellar: Finger to nose is intact bilaterally. Skin: Warm and dry Internal Med - H&P Results - Labs CBC & Chem 7: 12/18/18 16:37 12/18/18 16:37 Labs: Short CBC 12/18/18 Range/Units 16:37 WBC 16.7 H (4.3-11.1) K/mcL Hgb 11.9 (11.5-15.4) g/dL Hct 35.1 L (35.3-44.9) % Plt Count 331 (140-400) K/mcL Neutrophils # 11.9 H (1.6-8.9) K/mcL BMP 12/18/18 16:37 Sodium 133 L Potassium 4.1 Chloride 96 L Carbon Dioxide 31 H BUN 24 H Creatinine 0.67 Glucose 143 H Calcium 9.0 Cardiac Enzymes 12/18/18 Range/Units 16:37 Troponin I < 0.03 (< 0.04) ng/mL - Impressions ITS Impressions Chest X-Ray 12/18/18 16:25 IMPRESSION: 1. Interval appearance since February 2018 of a masslike opacity in the right upper lung zone measuring up to 5.1 cm. Finding is concerning for malignancy. Recommend dedicated chest CT with IV contrast. 2. COPD. D/ / 12/18/2018 16:31:03 Sultana Floyd MD / [facility] Interpreting Provider: Sultana Floyd MD Chest CT 12/18/18 17:38 IMPRESSION: 1. There is a right upper lobe infiltrate with areas of central liquefaction and cavitation, most likely related to an infectious etiology. Surrounding areas of consolidation are noted elsewhere in the right upper lobe, concerning for pneumonia. An underlying mass cannot entirely be excluded. Short interval follow-up in 2-3 months is recommended for further evaluation versus tissue sampling. 2. Enlarged mediastinal lymph nodes, presumably reactive. 3. Extensive atherosclerotic disease. 4. There is a right middle lobe nodule, slightly increased in size now measuring 7 x 5 mm when this previously measured 5 x 5 mm. Attention on follow-up imaging is recommended. D/ / 12/18/2018 17:50:23 Dequan Merritt MD / [facility] Interpreting Provider: Dequan Merritt MD
[2018-12-19] MEDS ORDERED: Tuberculin Skin Test (PPD) 5 UNIT/0.1 ML VIAL ID ONE (13:07)
[2018-12-19] MEDS: Clindamycin 600 MG/50 ML 600 MG/50 ML IV.SOLN IVPB SCH ×2 (14:30→21:34)
[2018-12-19] MEDS: 0.45 % Sodium Chloride w/KCl 20 MEQ/1,000 ML MLS IVC SCH (14:31)
[2018-12-19] MEDS: cefTRIAXone 2,000 MG in 0.9 % Sodium Chloride Mini Bag 100 ML IVPB SCH (17:43)
[2018-12-19] MEDS: Azithromycin 500 MG in 0.9 % Sodium Chloride 250 ML IVPB SCH (18:26)
[2018-12-19] MEDS: Lactobacillus 1 EACH CAP.SPRINK PO SCH (21:32)
[2018-12-19] MEDS: Acetaminophen 325 MG TABLET PO PRN (21:58)
[2018-12-20] MEDS: Ipratropium/Albuterol Neb 3 ML IH SCH (04:18)
[2018-12-20] MEDS: 0.45 % Sodium Chloride w/KCl 20 MEQ/1,000 ML MLS IVC SCH (06:21)
[2018-12-20] MEDS: Clindamycin 600 MG/50 ML 600 MG/50 ML IV.SOLN IVPB SCH ×3 (06:22→21:26)
[2018-12-20] MEDS: *HR* Enoxaparin 40 MG/0.4 ML SYRINGE SQ SCH (06:23)
[2018-12-20 07:11] LABS: Basophils # 0.1 K/mcL (0.0-0.2); Basophils % 0.6 %; Eosinophils # 0.4 K/mcL (0.0-0.6); Eosinophils % 4.2 %; Hematocrit 35.7 % (35.3-44.9); Hemoglobin 11.5 g/dL (11.5-15.4); Lymphocytes # 1.9 K/mcL (0.6-4.6); Mean Corpuscular HGB Conc 32.2 g/dL (31.6-35.5); Mean Corpuscular Hemoglobin 31.3 pg (28.0-33.3); Mean Corpuscular Volume 97.3 fL (83.0-100.0); Mean Platelet Volume 9.1 fL (9.4-12.4); Monocytes # 1.3 K/mcL (0.0-1.3); Monocytes % 13.2 %; Neutrophils # 6.2 K/mcL (1.6-8.9); Platelet Count 311 K/mcL (140-400); Red Blood Count 3.67 M/mcL (3.82-4.97); Red Cell Distribution Width 12.5 % (11.5-14.5); White Blood Count 10.1 K/mcL (4.3-11.1)
[2018-12-20 07:42] LABS: Alanine Aminotransferase 9 Units/L (7-52); Albumin 3.1 g/dL (3.5-5.7); Albumin/Globulin Ratio 0.8 (1.1-2.2); Alkaline Phosphatase 56 Units/L (34-104); Aspartate Amino Transferase 13 Units/L (13-39); BUN/Creatinine Ratio 20 (6-26); Bilirubin,Total 0.5 mg/dL (0.3-1.0); Blood Urea Nitrogen 11 mg/dL (8-23); Calcium 8.5 mg/dL (8.6-10.3); Carbon Dioxide 30 mEq/L (23-29); Chloride 100 mEq/L (98-107); Globulin 3.9 g/dL (2.4-3.5); Glucose 127 mg/dL (70-105); Osmolality,Calculated 281 (280-300); Potassium 4.4 mEq/L (3.5-5.1); Sodium 135 mEq/L (136-145); eGFR For African Americans > 60 (> 60); eGFR For Non-African Americans > 60 (> 60)
[2018-12-20] MEDS: Lactobacillus 1 EACH CAP.SPRINK PO SCH ×2 (09:08→21:25)
--- NOTE | 2018-12-20 09:34 | Internal Med Progress Note ---
Date of Encounter: 12/20/18 Time of Encounter: 09:25 - Assessment and plan (1) Cavitary pneumonia Current Visit: Yes Status: Acute Assessment and plan: December 20. A blood culture from ER is growing gram-positive cocci on prel iminary report. Continue present Rx awaiting final culture report. Appointment at [facility] pulmonology has been scheduled for next week. (2) Anxiety and depression Current Visit: Yes Status: Acute Assessment and plan: December 20. Continue Paxil. (3) Atrial fibrillation Current Visit: No Status: Chronic Assessment and plan: December 20. 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 Continue sotalol. Qualifiers: Atrial fibrillation type: paroxysmal Qualified Code(s): I48.0 - Paroxysmal atrial fibrillation (4) CAD (coronary artery disease) Current Visit: No Status: Chronic Assessment and plan: December 20. Status post 3 vessel CABG 1998. Continue aspirin and sotalol. Qualifiers: Coronary Disease-Associated Artery/Lesion type: [place] artery [place] vs. transplanted heart: [place] heart Associated angina: without angina Qualified Code(s): I25.10 - Atherosclerotic heart disease of [place] coronary artery without angina pectoris (5) Diabetes Current Visit: No Status: Chronic Assessment and plan: December 20. Hemoglobin A1c was 5.9% on 02/28/2018. Diet controlled. Qualifiers: Diabetes mellitus type: type 2 Diabetes mellitus intermediate insulin use: without intermediate use Diabetes mellitus complication status: without complication Qualified Code(s): E11.9 - Type 2 diabetes mellitus without complications (6) Peripheral neuropathy Current Visit: No Status: Acute Assessment and plan: December 20. Etiology uncertain. Continue B12 supplement. Qualifiers: Peripheral neuropathy type: polyneuropathy, unspecified Qualified Code(s): G62.9 - Polyneuropathy, unspecified - Subjective Interval history: December 20. She has no new complaints. She reports occasional to rare cough with minimal productivity. - Constitutional Vitals: Temp Pulse Resp BP Pulse Ox 97.4 F L 70 20 138/73 96 12/20/18 07:06 12/20/18 07:06 12/20/18 07:06 12/20/18 07:06 12/20/18 07:06 Exam: She is resting comfortably in chair at bedside and appears in no acute distress. Her affect is overall cheerful. I reviewed her medications and lab results. Internal Medicine: Result - Labs CBC & Chem 7: 12/20/18 06:54 12/20/18 06:54 Labs: Short CBC 12/20/18 Range/Units 06:54 WBC 10.1 (4.3-11.1) K/mcL Hgb 11.5 (11.5-15.4) g/dL Hct 35.7 (35.3-44.9) % Plt Count 311 (140-400) K/mcL Neutrophils # 6.2 (1.6-8.9) K/mcL BMP 12/20/18 06:54 Sodium 135 L Potassium 4.4 Chloride 100 Carbon Dioxide 30 H BUN 11 Creatinine 0.54 L Glucose 127 H Calcium 8.5 L Liver Function 12/20/18 Range/Units 06:54 Total Bilirubin 0.5 (0.3-1.0) mg/dL AST 13 (13-39) Units/L ALT 9 (7-52) Units/L Alkaline Phosphatase 56 (34-104) Units/L Albumin 3.1 L (3.5-5.7) g/dL Consult Discharge Plan - Plan Referrals: Teja Schrader MD [Primary Care Provider] - 1 week
[2018-12-20 09:35] LABS: Acinetobacter baumannii by PCR Not Detected (Not Detect); Candida albicans by PCR Not Detected (Not Detect); Candida glabrata by PCR Not Detected (Not Detect); Candida krusei by PCR Not Detected (Not Detect); Candida parapsilosis by PCR Not Detected (Not Detect); Candida tropicalis by PCR Not Detected (Not Detect); Enterobacter cloacae Cmplx PCR Not Detected (Not Detect); Enterobacteriaceae by PCR Not Detected (Not Detect); Enterococcus by PCR Not Detected (Not Detect); Escherichia coli by PCR Not Detected (Not Detect); Klebsiella oxytoca by PCR Not Detected (Not Detect); Klebsiella pneumoniae by PCR Not Detected (Not Detect); Proteus by PCR Not Detected (Not Detect); Pseudomonas aeruginosa by PCR Not Detected (Not Detect); Serratia marcescens by PCR Not Detected (Not Detect); Staphylococcus aureus by PCR Not Detected (Not Detect); Staphylococcus by PCR Not Detected (Not Detect); Streptococcus agalactiae(B)PCR Not Detected (Not Detect); Streptococcus by PCR Not Detected (Not Detect); Streptococcus pneumoniae PCR Not Detected (Not Detect); Streptococcus pyogenes (A) PCR Not Detected (Not Detect)
[2018-12-20] MEDS: cefTRIAXone 2,000 MG in 0.9 % Sodium Chloride Mini Bag 100 ML IVPB SCH (16:18)
[2018-12-20] MEDS: MOM Conc 10 ML UD.LIQ PO PRN (17:16)
[2018-12-20] MEDS: Azithromycin 500 MG in 0.9 % Sodium Chloride 250 ML IVPB SCH (17:17)
[2018-12-20] MEDS: Acetaminophen 325 MG TABLET PO PRN (23:41)
[2018-12-21] MEDS: Clindamycin 600 MG/50 ML 600 MG/50 ML IV.SOLN IVPB SCH ×3 (06:41→22:47)
[2018-12-21] MEDS: *HR* Enoxaparin 40 MG/0.4 ML SYRINGE SQ SCH (06:41)
[2018-12-21] MEDS: Lactobacillus 1 EACH CAP.SPRINK PO SCH ×2 (08:11→22:48)
--- NOTE | 2018-12-21 15:10 | Internal Med Progress Note ---
Date of Encounter: 12/21/18 Time of Encounter: 15:00 - Assessment and plan (1) Cavitary pneumonia Current Visit: Yes Status: Acute Assessment and plan: December 20. A blood culture from ER is growing gram-positive cocci on prel iminary report. Continue present Rx awaiting final culture report. Appointment at [facility] pulmonology has been scheduled for next week. (2) Anxiety and depression Current Visit: Yes Status: Acute Assessment and plan: December 20. Continue Paxil. (3) Atrial fibrillation Current Visit: No Status: Chronic Assessment and plan: December 20. 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 Continue sotalol. December 21. She had RVR earlier today. Continue sotalol and add Lanoxin. Family reports OAC is not being used due to patient's fall risk. Continue ASA use. Qualifiers: Atrial fibrillation type: paroxysmal Qualified Code(s): I48.0 - Paroxysmal atrial fibrillation (4) CAD (coronary artery disease) Current Visit: No Status: Chronic Assessment and plan: December 20. Status post 3 vessel CABG 1998. Continue aspirin and sotalol. Qualifiers: Coronary Disease-Associated Artery/Lesion type: [place] artery [place] vs. transplanted heart: [place] heart Associated angina: without angina Qualified Code(s): I25.10 - Atherosclerotic heart disease of [place] coronary artery without angina pectoris (5) Diabetes Current Visit: No Status: Chronic Assessment and plan: December 20. Hemoglobin A1c was 5.9% on 02/28/2018. Diet controlled. Qualifiers: Diabetes mellitus type: type 2 Diabetes mellitus long-term insulin use: without long-term use Diabetes mellitus complication status: without complication Qualified Code(s): E11.9 - Type 2 diabetes mellitus without complications (6) Peripheral neuropathy Current Visit: No Status: Acute Assessment and plan: December 20. Etiology uncertain. Continue B12 supplement. Qualifiers: Peripheral neuropathy type: polyneuropathy, unspecified Qualified Code(s): G62.9 - Polyneuropathy, unspecified - Subjective Interval history: December 20. She has no new complaints. She reports occasional to rare cough with minimal productivity. December 21. She has no new complaints and feels well. - Constitutional Vitals: Temp Pulse Resp BP Pulse Ox 97.8 F 116 32 135/82 96 12/21/18 10:59 12/21/18 14:58 12/21/18 10:59 12/21/18 14:58 12/21/18 10:59 Exam: She is resting comfortably in bed and appears in no acute distress. Heart is irregularly irregular with rate approximately 104/m. Lungs are clear anteriorly. Extremities show no edema. I reviewed her medications and lab results. Final blood culture report is pending. Internal Medicine: Result - Labs CBC & Chem 7: 12/20/18 06:54 12/20/18 06:54 Consult Discharge Plan - Plan Referrals: Teja Schrader MD [Primary Care Provider] - 1 week
[2018-12-21] MEDS: Aspirin 81 MG TAB.CHEW PO SCH (15:34)
[2018-12-21] MEDS: *HR* Digoxin 0.125 MG TABLET PO SCH (15:34)
[2018-12-21] MEDS: Azithromycin 500 MG in 0.9 % Sodium Chloride 250 ML IVPB SCH (16:59)
[2018-12-22 06:27] LABS: Basophils # 0.1 K/mcL (0.0-0.2); Basophils % 0.7 %; Eosinophils # 0.5 K/mcL (0.0-0.6); Eosinophils % 4.8 %; Hematocrit 36.1 % (35.3-44.9); Hemoglobin 11.8 g/dL (11.5-15.4); Immature Granulocytes % 0.8 % (0-4); Lymphocytes # 1.7 K/mcL (0.6-4.6); Lymphocytes % 18.2 %; Mean Corpuscular HGB Conc 32.7 g/dL (31.6-35.5); Mean Corpuscular Hemoglobin 31.6 pg (28.0-33.3); Mean Corpuscular Volume 96.8 fL (83.0-100.0); Mean Platelet Volume 9.7 fL (9.4-12.4); Monocytes # 1.2 K/mcL (0.0-1.3); Monocytes % 12.5 %; Platelet Count 316 K/mcL (140-400); Red Blood Count 3.73 M/mcL (3.82-4.97); Red Cell Distribution Width 12.5 % (11.5-14.5); White Blood Count 9.5 K/mcL (4.3-11.1)
[2018-12-22] MEDS: *HR* Enoxaparin 40 MG/0.4 ML SYRINGE SQ SCH (06:27)
[2018-12-22] MEDS: Clindamycin 600 MG/50 ML 600 MG/50 ML IV.SOLN IVPB SCH ×3 (06:28→20:47)
[2018-12-22 07:12] LABS: Thyroid Stimulating Hormone 2.468 mcIU/mL (0.340-5.600)
[2018-12-22 07:25] LABS: BUN/Creatinine Ratio 25 (6-26); Blood Urea Nitrogen 14 mg/dL (8-23); Calcium 9.1 mg/dL (8.6-10.3); Carbon Dioxide 32 mEq/L (23-29); Chloride 98 mEq/L (98-107); Glucose 134 mg/dL (70-105); Osmolality,Calculated 282 (280-300); Potassium 4.7 mEq/L (3.5-5.1); Sodium 135 mEq/L (136-145); eGFR For African Americans > 60 (> 60); eGFR For Non-African Americans > 60 (> 60)
[2018-12-22] MEDS: Aspirin 81 MG TAB.CHEW PO SCH (09:08)
[2018-12-22] MEDS: Lactobacillus 1 EACH CAP.SPRINK PO SCH ×2 (09:09→20:44)
[2018-12-22] MEDS: *HR* Digoxin 0.125 MG TABLET PO SCH (09:09)
[2018-12-22] MEDS: MOM Conc 10 ML UD.LIQ PO PRN (09:10)
--- NOTE | 2018-12-22 15:15 | Internal Med Progress Note ---
Date of Encounter: 12/22/18 Time of Encounter: 15:05 - Assessment and plan (1) Cavitary pneumonia Current Visit: Yes Status: Acute Assessment and plan: December 20. A blood culture from ER is growing gram-positive cocci on prel iminary report. Continue present Rx awaiting final culture report. Appointment at [facility] pulmonology has been scheduled for next week. December 22. WBC remains normal without left shift. She remains afebrile. Final blood culture report pending. Appointment at [facility] scheduled for 12/24/2018. (2) Anxiety and depression Current Visit: Yes Status: Acute Assessment and plan: December 20. Continue Paxil. (3) Atrial fibrillation Current Visit: No Status: Chronic Assessment and plan: December 20. 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 Continue sotalol. December 21. She had RVR earlier today. Continue sotalol and add Lanoxin. Family reports OAC is not being used due to patient's fall risk. Continue ASA use. December 22. She has remained in NSR. Continue sotalol and Lanoxin with aspirin. Qualifiers: Atrial fibrillation type: paroxysmal Qualified Code(s): I48.0 - Paroxysmal atrial fibrillation (4) CAD (coronary artery disease) Current Visit: No Status: Chronic Assessment and plan: December 20. Status post 3 vessel CABG 1998. Continue aspirin and sotalol. Qualifiers: Coronary Disease-Associated Artery/Lesion type: [place] artery [place] vs. transplanted heart: [place] heart Associated angina: without angina Qualified Code(s): I25.10 - Atherosclerotic heart disease of [place] coronary artery without angina pectoris (5) Diabetes Current Visit: No Status: Chronic Assessment and plan: December 20. Hemoglobin A1c was 5.9% on 02/28/2018. Diet controlled. 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 Etiology uncertain. Continue B12 supplement. December 22. B12 level WNL at 820. Continue present Rx. Qualifiers: Peripheral neuropathy type: polyneuropathy, unspecified Qualified Code(s): G62.9 - Polyneuropathy, unspecified - Subjective Interval history: December 20. She has no new complaints. She reports occasional to rare cough with minimal productivity. December 21. She has no new complaints and feels well. December 22. She has no new complaints. - Constitutional Vitals: Temp Pulse Resp BP Pulse Ox 98.2 F 75 28 117/65 95 12/22/18 14:30 12/22/18 14:30 12/22/18 14:30 12/22/18 14:30 12/22/18 14:30 Exam: She is resting comfortably in a chair at bedside and appears in no acute distress. She does not appear dyspneic. Her affect is bright and cheerful. I reviewed her medications and lab results. Internal Medicine: Result - Labs CBC & Chem 7: 12/22/18 05:45 12/22/18 05:45 Labs: Short CBC 12/22/18 Range/Units 05:45 WBC 9.5 (4.3-11.1) K/mcL Hgb 11.8 (11.5-15.4) g/dL Hct 36.1 (35.3-44.9) % Plt Count 316 (140-400) K/mcL Neutrophils # 6.0 (1.6-8.9) K/mcL BMP 12/22/18 05:45 Sodium 135 L Potassium 4.7 Chloride 98 Carbon Dioxide 32 H BUN 14 Creatinine 0.57 L Glucose 134 H Calcium 9.1 Consult Discharge Plan - Plan Referrals: Teja Schrader MD [Primary Care Provider] - 1 week
[2018-12-22] MEDS: Azithromycin 500 MG in 0.9 % Sodium Chloride 250 ML IVPB SCH (16:03)
[2018-12-23] MEDS: *HR* Enoxaparin 40 MG/0.4 ML SYRINGE SQ SCH (03:30)
[2018-12-23] MEDS: Clindamycin 600 MG/50 ML 600 MG/50 ML IV.SOLN IVPB SCH ×2 (03:31→15:15)
[2018-12-23] MEDS: Aspirin 81 MG TAB.CHEW PO SCH (08:26)
[2018-12-23] MEDS: *HR* Digoxin 0.125 MG TABLET PO SCH (08:27)
[2018-12-23] MEDS: Lactobacillus 1 EACH CAP.SPRINK PO SCH (08:27)
[2018-12-23] MEDS: MOM Conc 10 ML UD.LIQ PO PRN (11:53)
[2018-12-23] MEDS ORDERED: Bisacodyl 10 MG RECTAL SUPPOSITORY RC ONE (12:39)
[2018-12-23] MEDS: Azithromycin 500 MG in 0.9 % Sodium Chloride 250 ML IVPB SCH (17:12)
--- NOTE | 2018-12-23 17:33 | Discharge Summary ---
Orders not resulted at time of discharge: Pending orders 12/18/18 16:37 Culture,Blood [] Stat Date of Encounter: 12/23/18 Time of Encounter: 17:20 - Discharge Diagnosis (1) Cavitary pneumonia Priority: Primary Status: Acute (2) Anxiety and depression Priority: Secondary Status: Acute (3) Atrial fibrillation Priority: Secondary Status: Chronic Qualifiers: Atrial fibrillation type: paroxysmal Qualified Code(s): I48.0 - Paroxysmal atrial fibrillation (4) CAD (coronary artery disease) Priority: Secondary Status: Chronic Qualifiers: Coronary Disease-Associated Artery/Lesion type: [place] artery [place] vs. transplanted heart: [place] heart Associated angina: without angina Qualified Code(s): I25.10 - Atherosclerotic heart disease of [place] coronary artery without angina pectoris (5) Diabetes Priority: Secondary Status: Chronic Qualifiers: Diabetes mellitus type: type 2 Diabetes mellitus termite treater helper insulin use: without termite treater helper use Diabetes mellitus complication status: without complication Qualified Code(s): E11.9 - Type 2 diabetes mellitus without co mplications (6) Peripheral neuropathy Priority: Secondary Status: Acute Qualifiers: Peripheral neuropathy type: polyneuropathy, unspecified Qualified Code(s): G62.9 - Polyneuropathy, unspecified Hospital course: Ms. Martinez is a 88 year old female who came to emergency room complaining of dyspnea increasing over the past 4 weeks. She has had a cough with family reporting reddish tinged mucus in the past few days. She denies fevers chills vomiting diarrhea or pain. She was evaluated in emergency room and was found to have a right upper lobe 3.5 x 2.7 cm cavitary lesion. She was admitted to [facility] for ongoing care needs. Initial orders were written by the emergency room physician. I saw her on December 19 and performed a history and physical. Sputum was ordered for Gram stain, culture, and fungal stain. Blood cultures were ordered with one culture showing gram-positive cocci at time of discharge. Final diagnosis was pending and the specimen was sent to [facility] for ID and sensitivity on 12/22/2018. TB skin test returned nonreactive. She was started empirically on IV clindamycin and Zithromax. She had clinical response with WBC normalizing to 9.5 and no left shift on differential by December 22. Appointment was scheduled for her to be seen at [facility] outpatient pulmonology clinic 12/24/2018. Word had not been received from her insurance regarding swing bed conversion the late afternoon of December 23 so she was discharged home to follow-up as an outpatient at the [facility] appointment. She was maintained on aspirin for atrial fibrillation. She had paroxysms of AF intermixed with NSR. She occasionally had RVR so Lanoxin was added to control ventricular response rate and this will be continued at discharge. Hemoglobin A1c was noted to be 5.9% on 02/28/2018 consistent with diet- controlled DM 2. Room air oximetry on 6 minute walk showed saturation decreasing to 82% within 3 minutes. She became more dyspneic and required immediate reinstitution of oxygen for comfort and safety. She will be prescribed oxygen at 3 L per minute by nasal cannula 15/10 with portable gas and concentrator. Qualifying diagnosis is COPD with hypoxemia not remedied by use of bronchodilators. She will follow with her PCP Dr. Teja Schrader within 1 week. She will be given clindamycin on prescription to take until seen tomorrow at [facility]. - Time Spent with Patient Total time spent providing and/or coordinating discharge services: - Discharge Medications Prescriptions: New Clindamycin HCl 300 mg PO Q8H #3 capsule Lactobacillus [Culturelle] 1 each PO BID #2 cap.sprink Continued Alendronate Sodium 70 mg PO TU Simvastatin [Zocor] 10 mg PO DAILY PARoxetine HCl [Paroxetine HCl] 40 mg PO DAILY Omeprazole [PriLOSEC] 40 mg PO DAILY Cyanocobalamin (B-12) [Vitamin B12] 1,000 mcg IM FR Sotalol HCl [Betapace] 120 mg PO QPM Ferrous Sulfate [Iron] 325 mg PO DAILY Cholecalciferol (D-3) [Vitamin D] 1,000 unit PO DAILY Magnesium Oxide [Magnesium] 400 mg PO DAILY Calcium Carbonate [Calcium] 500 mg PO DAILY Mecobalamin [B-12] 1,000 mcg SL DAILY Aspirin [Lo-Dose Aspirin EC] 162 mg PO DAILY Polyethylene Glycol 3350 [MiraLax bowel prep] 17 gm PO DAILY PRN PRN Reason: Constipation Patient Taking Own Medication 1 each TP QID PRN each PRN Reason: pain Home Medications: Alendronate Sodium 70 mg PO TU 02/24/18 [History] Aspirin [Lo-Dose Aspirin EC] 162 mg PO DAILY 02/24/18 [History] Calcium Carbonate [Calcium] 500 mg PO DAILY 02/24/18 [History] Cholecalciferol (D-3) [Vitamin D] 1,000 unit PO DAILY 02/24/18 [History] Cyanocobalamin (B-12) [Vitamin B12] 1,000 mcg IM FR 02/24/18 [History] Ferrous Sulfate [Iron] 325 mg PO DAILY 02/24/18 [History] Magnesium Oxide [Magnesium] 400 mg PO DAILY 02/24/18 [History] Mecobalamin [B-12] 1,000 mcg SL DAILY 02/24/18 [History] Omeprazole [PriLOSEC] 40 mg PO DAILY 02/24/18 [History] PARoxetine HCl [Paroxetine HCl] 40 mg PO DAILY 02/24/18 [History] Polyethylene Glycol 3350 [MiraLax bowel prep] 17 gm PO DAILY PRN 02/24/18 [History] Simvastatin [Zocor] 10 mg PO DAILY 02/24/18 [History] Sotalol HCl [Betapace] 120 mg PO QPM 02/24/18 [History] Patient Taking Own Medication 1 each TP QID PRN each 02/26/18 [Rx] Clindamycin HCl 300 mg PO Q8H #3 capsule 12/23/18 [Rx] Lactobacillus [Culturelle] 1 each PO BID #2 cap.sprink 12/23/18 [Rx] Allergies/Adverse Reactions: Allergy/AdvReac Type Severity Reaction Status Date / Time Penicillins Allergy Hives Verified 01/13/16 17:40 gabapentin AdvReac Confusion Verified 12/09/17 14:25 sulfamethoxazole AdvReac See Verified 02/24/18 21:39 [From Bactrim] Comments terbinafine [From Lamisil] AdvReac Nausea Verified 12/09/17 14:25 trimethoprim [From Bactrim] AdvReac See Verified 02/24/18 21:39 Comments Date of admission: 12/19/18 14:10 Primary care physician: Teja Schrader MD Consults: 12/19/18 10:02 Consult to Occupational Therapy [CONS] Routine Comment: Evaluate, develop and implement POC Reason for Consult: weakness Does patient have active BEDREST order?: No Is patient medically & hemodynamically stable?: Yes Patient assessed for mobility or mobilized this visit?: Yes Consult to Physical Therapy [CONS] Routine Comment: Evaluate, develop and implement POC Reason for Consult: weakness Does patient have active BEDREST order?: No Is patient medically & hemodynamically stable?: Yes Patient assessed for mobility or mobilized this visit?: Yes - Constitutional Vitals: Temp Pulse Resp BP Pulse Ox 98.6 F 74 20 130/65 93 12/23/18 14:26 12/23/18 14:26 12/23/18 14:26 12/23/18 14:26 12/23/18 14:26 - Patient Status Disposition: Home, Self-Care Condition: Fair - Discharge Instructions Follow Up With: Teja Schrader MD [Primary Care Provider] - 1 week - Diet and Activity Activity: resume usual activities as tolerated, wear oxygen at all times (3 Liters per minute by nasal cannula 15/10.) Diet: advance to your usual diet
[2018-12-23 18:34] VITALS: BP 136/76
== END 2018-12-23 19:20 | disposition home or self-care (01) | DRG 194 ==
LOC: INPPIK 16:02 → EMEROOPIK 16:02 → INPPIK 18:15
PROVIDERS: ADMIT Internal Medicine; ATTEND Internal Medicine

== ENCOUNTER 2018-12-27 15:41 | Inpatient (IN) ==
[2018-12-27] MEDS ORDERED: GuaiFENesin Liq 200 MG/10 ML UDC PO PRN (18:49)
[2018-12-28 07:08] LABS: Basophils # 0.1 K/mcL (0.0-0.2); Eosinophils # 0.3 K/mcL (0.0-0.6); Eosinophils % 4.5 %; Hematocrit 40.2 % (35.3-44.9); Immature Granulocytes % 0.4 % (0-4); Lymphocytes # 2.3 K/mcL (0.6-4.6); Lymphocytes % 30.2 %; Mean Corpuscular HGB Conc 32.3 g/dL (31.6-35.5); Mean Corpuscular Hemoglobin 31.7 pg (28.0-33.3); Mean Platelet Volume 8.9 fL (9.4-12.4); Monocytes # 0.9 K/mcL (0.0-1.3); Monocytes % 11.4 %; Platelet Count 302 K/mcL (140-400); Red Cell Distribution Width 12.8 % (11.5-14.5); Segmented Neutrophils % 52.5 %; White Blood Count 7.6 K/mcL (4.3-11.1)
[2018-12-28 07:26] LABS: BUN/Creatinine Ratio 28 (6-26); Blood Urea Nitrogen 19 mg/dL (8-23); Calcium 9.1 mg/dL (8.6-10.3); Carbon Dioxide 35 mEq/L (23-29); Chloride 97 mEq/L (98-107); Glucose 132 mg/dL (70-105); Osmolality,Calculated 286 (280-300); Potassium 4.4 mEq/L (3.5-5.1); Sodium 136 mEq/L (136-145); eGFR For African Americans > 60 (> 60); eGFR For Non-African Americans > 60 (> 60)
[2018-12-28] MEDS: Cholecalciferol (D-3) 1,000 UNIT (25MCG) TABLET PO SCH (09:49)
[2018-12-28] MEDS: Aspirin Enteric Coated 81 MG Tablet PO SCH (09:49)
[2018-12-28] MEDS: Magnesium Oxide 400 MG TABLET PO SCH (09:49)
[2018-12-28] MEDS: Cyanocobalamin (B-12) 1,000 MCG TABLET PO SCH (09:49)
--- NOTE | 2018-12-28 16:57 | Internal Med History&Physical ---
Date of Encounter: 12/28/18 Time of Encounter: 16:25 Assessment and Plan (1) Cavitary pneumonia Current visit: No Status: Acute Specific etiology undetermined. Follow-up with [facility] pulmonology as scheduled. She will remain off antibiotics and antifungal medication at this time. (2) Weakness Current visit: Yes Status: Acute PT and OT evaluations have been ordered. (3) Atrial fibrillation Current visit: No Status: Chronic Paroxysmal. Continue sotalol. Maintain aspirin for CVA prophylaxis. Qualifiers: Atrial fibrillation type: paroxysmal Qualified Code(s): I48.0 - Paroxysmal atrial fibrillation Internal Medicine - H&P: HPI Chief complaint: Cavitary lung lesion Admitted From: Hospital to Hospital Transfer Plans for Post Hospital Care: Home History of present illness: Ms. Martinez is a 88 year old female who was admitted to [facility] swing bed 12/27/2018 following December 24- stay at [facility]. She was seen at [facility] outpatient pulmonology clinic December 24 to further evaluate cavitary lung lesion of the right upper lobe. The clinic physician referred her to emergency room until a bed became available for admission. She had bronchoscopy but reports a definitive etiology was not determined. She will return to [facility] in 1-2 weeks for follow-up visit. She reports initial impression was likely fungal infection rather than malignancy or bacterial infection. She had been hospitalized at [facility] December 18 to December 23 after presenting with 4 weeks history of dyspnea. A 3.5 x 2.7 cm cavitary lesion was found on chest CT. She was started empirically on clindamycin and Zithromax. A blood culture showed gram-positive cocci at time of discharge. She was prescribed oxygen at 3 L/m by nasal cannula 15/10 prior to discharge home. Respiratory history is significant for being a lifelong nonsmoker. Past Med Surg Social Fam HX - Past Medical History Medical history: arthritis, atrial fibrillation, diabetes, GERD, hypertension, myocardial infarction, seizures Additional medical history: PNEUMONIA. Last seizure [id number] Psychiatric history: anxiety, depression - Past Surgical History Surgical History: , coronary bypass (CABG), pacemaker Additional surgical history: hip surgery - Social History Smoking Status: Never smoker Smokeless Tobacco Status: No Alcohol use: none Drug use: none - Family History Mother Living Status: Father Living Status: Internal Medicine - H&P: Meds Alendronate Sodium 70 mg PO TU 02/24/18 [History] Aspirin [Lo-Dose Aspirin EC] 162 mg PO DAILY 02/24/18 [History] Calcium Carbonate [Calcium] 500 mg PO DAILY 02/24/18 [History] Cholecalciferol (D-3) [Vitamin D] 1,000 unit PO DAILY 02/24/18 [History] Cyanocobalamin (B-12) [Vitamin B12] 1,000 mcg IM FR 02/24/18 [History] Ferrous Sulfate [Iron] 325 mg PO DAILY 02/24/18 [History] Magnesium Oxide [Magnesium] 400 mg PO DAILY 02/24/18 [History] Mecobalamin [B-12] 1,000 mcg SL DAILY 02/24/18 [History] Omeprazole [PriLOSEC] 40 mg PO DAILY 02/24/18 [History] PARoxetine HCl [Paroxetine HCl] 40 mg PO DAILY 02/24/18 [History] Polyethylene Glycol 3350 [MiraLax bowel prep] 17 gm PO DAILY PRN 02/24/18 [History] Simvastatin [Zocor] 10 mg PO DAILY 02/24/18 [History] Sotalol HCl [Betapace] 120 mg PO QPM 02/24/18 [History] Patient Taking Own Medication 1 each TP QID PRN each 02/26/18 [Rx] Clindamycin HCl 300 mg PO Q8H #3 capsule 12/23/18 [Rx] Lactobacillus [Culturelle] 1 each PO BID #2 cap.sprink 12/23/18 [Rx] Allergy/AdvReac Type Severity Reaction Status Date / Time Penicillins Allergy Hives Verified 01/13/16 17:40 gabapentin AdvReac Confusion Verified 12/09/17 14:25 sulfamethoxazole AdvReac See Verified 02/24/18 21:39 [From Bactrim] Comments terbinafine [From Lamisil] AdvReac Nausea Verified 12/09/17 14:25 trimethoprim [From Bactrim] AdvReac See Verified 02/24/18 21:39 Comments All Systems PM: A 10-system review of systems was performed and is negative for pertinent findings except as documented above in the HPI. Review of systems: Review of systems from her recent November 2018 [facility] hospitalization were reviewed and revised as below. Gen.: Her weight has increased from 50.831 kg on 03/04/2018 to present weight of 52.163 kilograms. Cardiovascular: She denies hypertension or heart failure. 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 She has had a pacemaker placed. She has chronic atrial fibrillation and is on aspirin instead of oral anticoagulant. She denies DVT or pulmonary embolus. Respiratory: As per history of present illness GI: She has GERD. She denies disorders of her liver gallbladder or exocrine pancreas : She had a kidney stone remotely. 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 She denies large distribution strokes. She states she has peripheral neuropathy. Endocrine: She was diagnosed with DM 2 approximately 2011. Hemoglobin A1c was 5.9% on 02/28/2018 consistent with diet control DM 2. She denies known thyroid disease or hyperlipidemia Hematology/oncology: She denies blood disorders or internal malignancies. She has had anemia in the past which has resolved. Psychiatric: She has history of anxiety and depression and is on Paxil. She denies other mental health diagnosis. [place] skeletal: She has DJD and gout history. She complains of chronic low back pain. - Constitutional Vitals: Temp Pulse Resp BP Pulse Ox 97.2 F L 77 15 125/64 93 12/28/18 16:20 12/28/18 16:20 12/28/18 16:20 12/28/18 16:20 12/28/18 16:20 Exam: Gen.: She is a well-developed well-nourished female resting comfortably in bed who appears in no acute distress. HEENT: Head is atraumatic and normocephalic. Eyes: EOMI. There is no scleral icterus. Mouth: Mucosa is moist. Neck: Supple and nontender. There is no thyromegaly or adenopathy noted. Heart: Irregularly irregular without murmurs or gallops. Lungs: No wheezes or crackles are heard. Abdomen: Soft and nontender. No masses or guarding are noted. Extremities: There is no cyanosis edema or clubbing noted. Dorsalis pedis and posterior tibial pulses are trace to 1+ palpable bilaterally. Neurologic: Mental status: She is talkative and a good historian. Cranial nerves: Smile is symmetric. Forehead wrinkles bilaterally. Tongue protrudes midline. EOMI. Motor: There is no pronator drift. Cerebellar: Finger to nose is intact bilaterally. Skin: Warm and dry Internal Med - H&P Results - Labs CBC & Chem 7: 12/28/18 06:55 12/28/18 06:55 Labs: Short CBC 12/28/18 Range/Units 06:55 WBC 7.6 (4.3-11.1) K/mcL Hgb 13.0 (11.5-15.4) g/dL Hct 40.2 (35.3-44.9) % Plt Count 302 (140-400) K/mcL Neutrophils # 4.0 (1.6-8.9) K/mcL BMP 12/28/18 06:55 Sodium 136 Potassium 4.4 Chloride 97 L Carbon Dioxide 35 H BUN 19 Creatinine 0.67 Glucose 132 H Calcium 9.1
[2018-12-29] MEDS: *HR* Enoxaparin 40 MG/0.4 ML SYRINGE SQ SCH (06:10)
[2018-12-29] MEDS: Cholecalciferol (D-3) 1,000 UNIT (25MCG) TABLET PO SCH (08:45)
[2018-12-29] MEDS: Magnesium Oxide 400 MG TABLET PO SCH (08:45)
[2018-12-29] MEDS: Aspirin Enteric Coated 81 MG Tablet PO SCH (08:45)
[2018-12-29] MEDS: Cyanocobalamin (B-12) 1,000 MCG TABLET PO SCH (08:45)
--- NOTE | 2018-12-29 12:17 | Internal Med Progress Note ---
Date of Encounter: 12/29/18 Time of Encounter: 12:10 - Assessment and plan (1) Cavitary pneumonia Current Visit: No Status: Acute Assessment and plan: December 29. Follow-up with [facility] pulmonology as scheduled. Remain off antibiotics and antifungal medication at this time. (2) Weakness Current Visit: Yes Status: Acute Assessment and plan: December 29. Continue PT/OT intervention. (3) Atrial fibrillation Current Visit: No Status: Chronic Assessment and plan: December 29. Continue sotalol and aspirin. Qualifiers: Atrial fibrillation type: paroxysmal Qualified Code(s): I48.0 - Paroxysmal atrial fibrillation - Subjective Interval history: December 29. She has no new complaints and feels well. - Constitutional Vitals: Temp Pulse Resp BP Pulse Ox 98.4 F 84 15 122/69 94 12/29/18 06:45 12/29/18 08:56 12/29/18 06:45 12/29/18 06:45 12/29/18 08:56 Exam: She is sitting in a chair at bedside resting comfortably and appears in no acute distress. Her affect is bright and cheerful. I reviewed her medications and lab results. Internal Medicine: Result - Labs CBC & Chem 7: 12/28/18 06:55 12/28/18 06:55 Consult Discharge Plan - Plan Referrals: Teja Schrader MD [Primary Care Provider] - 1 week
[2018-12-30] MEDS: *HR* Enoxaparin 40 MG/0.4 ML SYRINGE SQ SCH (06:30)
[2018-12-30] MEDS: Cholecalciferol (D-3) 1,000 UNIT (25MCG) TABLET PO SCH (09:00)
[2018-12-30] MEDS: Aspirin Enteric Coated 81 MG Tablet PO SCH (09:00)
[2018-12-30] MEDS: Cyanocobalamin (B-12) 1,000 MCG TABLET PO SCH (09:01)
[2018-12-30] MEDS: Magnesium Oxide 400 MG TABLET PO SCH (09:01)
[2018-12-30] MEDS ORDERED: Acetaminophen 325 MG TABLET PO PRN (15:10)
[2018-12-30] MEDS ORDERED: Alendronate Sodium 70 MG PO SCH (18:47)
[2018-12-31] MEDS: *HR* Enoxaparin 40 MG/0.4 ML SYRINGE SQ SCH (06:33)
[2018-12-31] MEDS: Cyanocobalamin (B-12) 1,000 MCG TABLET PO SCH (09:20)
[2018-12-31] MEDS: Aspirin Enteric Coated 81 MG Tablet PO SCH (09:20)
[2018-12-31] MEDS: Magnesium Oxide 400 MG TABLET PO SCH (09:20)
[2018-12-31] MEDS: Cholecalciferol (D-3) 1,000 UNIT (25MCG) TABLET PO SCH (09:20)
--- NOTE | 2018-12-31 14:33 | Internal Med Progress Note ---
Date of Encounter: 12/31/18 Time of Encounter: 14:20 - Assessment and plan (1) Cavitary pneumonia Current Visit: No Status: Acute Assessment and plan: December 29. Follow-up with [facility] pulmonology as scheduled. Remain off antibiotics and antifungal medication at this time. December 31. Continue observation. Anticipate discharge home 01/02/2019. (2) Weakness Current Visit: Yes Status: Acute Assessment and plan: December 29. Continue PT/OT intervention. (3) Atrial fibrillation Current Visit: No Status: Chronic Assessment and plan: December 29. Continue sotalol and aspirin. Qualifiers: Atrial fibrillation type: paroxysmal Qualified Code(s): I48.0 - Paroxysmal atrial fibrillation - Subjective Interval history: December 29. She has no new complaints and feels well. December 31. She has no new complaints. - Constitutional Vitals: Temp Pulse Resp BP Pulse Ox 98.0 F 71 16 148/84 94 12/31/18 06:50 12/31/18 06:50 12/31/18 06:50 12/31/18 06:50 12/30/18 17:30 Exam: She is resting comfortably in bed and appears in no acute distress. Her affect is bright and cheerful. She is not dyspneic. I reviewed her medications and lab results. Internal Medicine: Result - Labs CBC & Chem 7: 12/28/18 06:55 12/28/18 06:55 Consult Discharge Plan - Plan Referrals: Teja Schrader MD [Primary Care Provider] - 1 week
[2019-01-01] MEDS: *HR* Enoxaparin 40 MG/0.4 ML SYRINGE SQ SCH (06:20)
[2019-01-01] MEDS: Magnesium Oxide 400 MG TABLET PO SCH (09:08)
[2019-01-01] MEDS: Cholecalciferol (D-3) 1,000 UNIT (25MCG) TABLET PO SCH (09:09)
[2019-01-01] MEDS: Cyanocobalamin (B-12) 1,000 MCG TABLET PO SCH (09:09)
[2019-01-01] MEDS: Aspirin Enteric Coated 81 MG Tablet PO SCH (09:09)
[2019-01-02 06:31] VITALS: BP 125/71
[2019-01-02] MEDS: *HR* Enoxaparin 40 MG/0.4 ML SYRINGE SQ SCH (06:39)
[2019-01-02 08:06] LABS: Basophils # 0.1 K/mcL (0.0-0.2); Eosinophils # 0.3 K/mcL (0.0-0.6); Eosinophils % 4.1 %; Hematocrit 40.5 % (35.3-44.9); Hemoglobin 12.9 g/dL (11.5-15.4); Immature Granulocytes % 0.5 % (0-4); Lymphocytes # 2.1 K/mcL (0.6-4.6); Lymphocytes % 25.3 %; Mean Corpuscular HGB Conc 31.9 g/dL (31.6-35.5); Mean Corpuscular Hemoglobin 31.8 pg (28.0-33.3); Mean Corpuscular Volume 99.8 fL (83.0-100.0); Mean Platelet Volume 9.1 fL (9.4-12.4); Monocytes # 1.1 K/mcL (0.0-1.3); Monocytes % 13.7 %; Neutrophils # 4.6 K/mcL (1.6-8.9); Platelet Count 278 K/mcL (140-400); Red Blood Count 4.06 M/mcL (3.82-4.97); Red Cell Distribution Width 13.2 % (11.5-14.5); Segmented Neutrophils % 55.4 %; White Blood Count 8.3 K/mcL (4.3-11.1)
[2019-01-02] MEDS: Cyanocobalamin (B-12) 1,000 MCG TABLET PO SCH (09:52)
[2019-01-02] MEDS: Magnesium Oxide 400 MG TABLET PO SCH (09:52)
[2019-01-02] MEDS: Aspirin Enteric Coated 81 MG Tablet PO SCH (09:52)
[2019-01-02] MEDS: Cholecalciferol (D-3) 1,000 UNIT (25MCG) TABLET PO SCH (09:52)
--- NOTE | 2019-01-02 11:48 | Discharge Summary ---
Date of Encounter: 01/02/19 Time of Encounter: 11:40 - Discharge Diagnosis (1) Cavitary pneumonia Priority: Primary Status: Acute (2) Weakness Priority: Secondary Status: Acute (3) Atrial fibrillation Priority: Secondary Status: Chronic Qualifiers: Atrial fibrillation type: paroxysmal Qualified Code(s): I48.0 - Paroxysmal atrial fibrillation Hospital course: Ms. Martinez is a 88 year old female who was admitted to [facility] swing bed 12/27/2018 following December 24- stay at [facility]. She was seen at [facility] outpatient pulmonology clinic December 24 to further evaluate cavitary lung lesion of the right upper lobe. The clinic physician referred her to emergency room until a bed became available for admission. She had bronchoscopy but reports a definitive etiology was not determined. She returned to [facility] swing bed. I saw her December 28 and performed a swing bed history and physical. She had physical therapy and occupational therapy evaluations with ongoing intervention and made satisfactory progress. She remained afebrile and was not dyspneic. There were no new problems and on January 02 she was stable for discharge home. She will follow with her PCP Dr. Teja Schrader 6 within 1 week. She will follow with [facility] as scheduled . - Time Spent with Patient Total time spent providing and/or coordinating discharge services: - Discharge Medications Prescriptions: Continued Alendronate Sodium 70 mg PO TU Simvastatin [Zocor] 10 mg PO DAILY PARoxetine HCl [Paroxetine HCl] 40 mg PO DAILY Omeprazole [PriLOSEC] 40 mg PO DAILY Cyanocobalamin (B-12) [Vitamin B12] 1,000 mcg IM FR Sotalol HCl [Betapace] 120 mg PO QPM Ferrous Sulfate [Iron] 325 mg PO DAILY Cholecalciferol (D-3) [Vitamin D] 1,000 unit PO DAILY Magnesium Oxide [Magnesium] 400 mg PO DAILY Calcium Carbonate [Calcium] 500 mg PO DAILY Mecobalamin [B-12] 1,000 mcg SL DAILY Aspirin [Lo-Dose Aspirin EC] 162 mg PO DAILY Polyethylene Glycol 3350 [MiraLax bowel prep] 17 gm PO DAILY PRN PRN Reason: Constipation Patient Taking Own Medication 1 each TP QID PRN each PRN Reason: pain Discontinued Clindamycin HCl 300 mg PO Q8H #3 capsule Lactobacillus [Culturelle] 1 each PO BID #2 cap.sprink Home Medications: Alendronate Sodium 70 mg PO TU 02/24/18 [History] Aspirin [Lo-Dose Aspirin EC] 162 mg PO DAILY 02/24/18 [History] Calcium Carbonate [Calcium] 500 mg PO DAILY 02/24/18 [History] Cholecalciferol (D-3) [Vitamin D] 1,000 unit PO DAILY 02/24/18 [History] Cyanocobalamin (B-12) [Vitamin B12] 1,000 mcg IM FR 02/24/18 [History] Ferrous Sulfate [Iron] 325 mg PO DAILY 02/24/18 [History] Magnesium Oxide [Magnesium] 400 mg PO DAILY 02/24/18 [History] Mecobalamin [B-12] 1,000 mcg SL DAILY 02/24/18 [History] Omeprazole [PriLOSEC] 40 mg PO DAILY 02/24/18 [History] PARoxetine HCl [Paroxetine HCl] 40 mg PO DAILY 02/24/18 [History] Polyethylene Glycol 3350 [MiraLax bowel prep] 17 gm PO DAILY PRN 02/24/18 [History] Simvastatin [Zocor] 10 mg PO DAILY 02/24/18 [History] Sotalol HCl [Betapace] 120 mg PO QPM 02/24/18 [History] Patient Taking Own Medication 1 each TP QID PRN each 02/26/18 [Rx] Allergies/Adverse Reactions: Allergy/AdvReac Type Severity Reaction Status Date / Time Penicillins Allergy Hives Verified 01/13/16 17:40 gabapentin AdvReac Confusion Verified 12/09/17 14:25 sulfamethoxazole AdvReac See Verified 02/24/18 21:39 [From Bactrim] Comments terbinafine [From Lamisil] AdvReac Nausea Verified 12/09/17 14:25 trimethoprim [From Bactrim] AdvReac See Verified 02/24/18 21:39 Comments Date of admission: 12/27/18 17:42 Primary care physician: Teja Schrader MD Consults: 12/27/18 18:09 Consult to User Interface Engineer [CONS] Routine Reason for SW Consult: discharge planning 12/27/18 18:32 Consult to Physical Therapy [CONS] Routine Comment: Evaluate, develop and implement POC Reason for Consult: weakness Does patient have active BEDREST order?: No Is patient medically & hemodynamically stable?: Yes Patient assessed for mobility or mobilized this visit?: Yes OT [Consult to Occupational Therapy] [CONS] Routine Comment: Evaluate, develop and implement POC Reason for Consult: weakness Does patient have active BEDREST order?: No Is patient medically & hemodynamically stable?: Yes Patient assessed for mobility or mobilized this visit?: Yes - Constitutional Vitals: Temp Pulse Resp BP Pulse Ox 98.4 F 69 16 125/71 94 01/02/19 06:28 01/02/19 06:28 01/02/19 06:28 01/02/19 06:28 01/02/19 06:28 - Patient Status Disposition: Home Health Service - Discharge Instructions Follow Up With: Teja Schrader MD [Primary Care Provider] - 1 week (will be made by family per family request) - Diet and Activity Activity: as per physical therapy, resume usual activities as tolerated Diet: low salt diet
--- NOTE | 2019-01-02 11:53 | Physician Discharge Referral ---
Home Health/Hosp Referral Info Transfer to: Home Health Attending Provider: Tyron Provider in Charge Post Discharge: PCP (Teja Schrader MD) - Diagnosis (1) Cavitary pneumonia Priority: Primary Status: Acute (2) Weakness Priority: Secondary Status: Acute (3) Atrial fibrillation Priority: Secondary Status: Chronic - Respiratory Orders Oxygen / L per min (2 Liters per minute by nasal cannula to keep sat greater than 90%) Smoking Cessation: Smoking cessation has been advised. For more information, call the [place] Tobacco Quit Line at 4-040-ZFLE-NOW. - Diet/Nutrition Diet/Nutrition Orders: Cardiac - Activity Activity Orders: Walker - Services Needed Following services are medically necessary services: Nursing, Home Health Aide, Physical Therapy, Occupational Therapy - Transfer Medications Home Medications: Alendronate Sodium 70 mg PO TU 02/24/18 [History] Aspirin [Lo-Dose Aspirin EC] 162 mg PO DAILY 02/24/18 [History] Calcium Carbonate [Calcium] 500 mg PO DAILY 02/24/18 [History] Cholecalciferol (D-3) [Vitamin D] 1,000 unit PO DAILY 02/24/18 [History] Cyanocobalamin (B-12) [Vitamin B12] 1,000 mcg IM FR 02/24/18 [History] Ferrous Sulfate [Iron] 325 mg PO DAILY 02/24/18 [History] Magnesium Oxide [Magnesium] 400 mg PO DAILY 02/24/18 [History] Mecobalamin [B-12] 1,000 mcg SL DAILY 02/24/18 [History] Omeprazole [PriLOSEC] 40 mg PO DAILY 02/24/18 [History] PARoxetine HCl [Paroxetine HCl] 40 mg PO DAILY 02/24/18 [History] Polyethylene Glycol 3350 [MiraLax bowel prep] 17 gm PO DAILY PRN 02/24/18 [History] Simvastatin [Zocor] 10 mg PO DAILY 02/24/18 [History] Sotalol HCl [Betapace] 120 mg PO QPM 02/24/18 [History] Patient Taking Own Medication 1 each TP QID PRN each 02/26/18 [Rx] Allergies/Adverse Reactions: Allergy/AdvReac Type Severity Reaction Status Date / Time Penicillins Allergy Hives Verified 01/13/16 17:40 gabapentin AdvReac Confusion Verified 12/09/17 14:25 sulfamethoxazole AdvReac See Verified 02/24/18 21:39 [From Bactrim] Comments terbinafine [From Lamisil] AdvReac Nausea Verified 12/09/17 14:25 trimethoprim [From Bactrim] AdvReac See Verified 02/24/18 21:39 Comments Certification: Further, I certify that my clinical findings support that this patient is homebound (i.e. absences from home require considerable and taxing effort and are for medical reasons or congregation services or infrequently or short duration when for other reasons) because: Homebound Reason: Leaving home requires considerable and taxing effort due to condition (Cavitary pneumonia with dyspnea on exertion.) Attestation: My signature below is to certify that this patient is under my care and that I, or nurse practitioner, or a physician's school health assistant working with me, has a [id number] encounter with this patient.
== END 2019-01-02 16:00 | disposition home health service (06) | DRG 194 ==
LOC: INPPIK 17:42
PROVIDERS: ADMIT Internal Medicine; ATTEND Internal Medicine